=== PATIENT | male | born 1970 | race African-American/Black ===

== ENCOUNTER 2019-09-16 12:34 | Inpatient (IN) | payer OTHER ==
[2019-09-16] VITALS (10 sets, daily range): BP systolic 111–140; BP diastolic 60–86
[~2019-09-16] VITALS: Ht 190.5 cm; Wt 95.3 kg
[2019-09-16] MEDS ORDERED: Sodium Chloride 2,900 ML IVLG ONE (12:45)
[2019-09-16] MEDS ORDERED: Meropenem 1 GM in NS 55 ML IVPB ONE (13:30)
[2019-09-16] MEDS ORDERED: Acetaminophen 500mg (ES) tab ORAL ONE (13:30)
[2019-09-16] MEDS ORDERED: Omnipaque-300 100ml vial INJ ONE (13:30)
[2019-09-16] MEDS ORDERED: Vancomycin 1 GM in NS 275 ML IVPB ONE (13:30)
[2019-09-16 13:34] LABS: BASOPHILS % (AUTO) 1.3 % (0.0-2.0); HEMATOCRIT 42.3 % (42.0-52.0); HEMOGLOBIN 14.3 G/DL (14.2-18.0); LYMPHOCYTES % (AUTO) 10.2 % (20.0-45.0); MEAN CORPUSCULAR VOLUME 84 FL (80-99); MONOCYTES % (AUTO) 11.1 % (1.0-10.0); NEUTROPHILS % (AUTO) 77.4 % (45.0-75.0); PLATELET COUNT 208 K/UL (150-450); RED BLOOD COUNT 5.02 M/UL (4.70-6.10); RED CELL DISTRIBUTION WIDTH 10.9 % (11.6-14.8); WHITE BLOOD COUNT 14.1 K/UL (4.8-10.8)
[2019-09-16 14:05] LABS: ANION GAP 10 mmol/L (5-15); BLOOD UREA NITROGEN 17 mg/dL (7-18); CALCIUM 8.8 MG/DL (8.5-10.1); CARBON DIOXIDE 26 MMOL/L (21-32); CHLORIDE 98 MMOL/L (98-107); CREATININE 1.4 MG/DL (0.55-1.30); POTASSIUM 3.7 MMOL/L (3.5-5.1); SODIUM 134 MMOL/L (136-145)
[2019-09-16 14:08] LABS: ALANINE AMINOTRANSFERASE 35 U/L (12-78); ALBUMIN 3.4 G/DL (3.4-5.0); ALBUMIN/GLOBULIN RATIO 0.8 (1.0-2.7); ALKALINE PHOSPHATASE 103 U/L (46-116); ASPARTATE AMINO TRANSFERASE 21 U/L (15-37); CKMB 0.9 NG/ML (0.0-3.6); CREATINE KINASE 204 U/L (26-308)
--- NOTE | 2019-09-16 14:17 | Diagnostic Imaging Report ---
Indication: Shortness of breath Technique: XRAY Chest 1v Comparison: None Findings: Lung windows lobe. Heart appears enlarged. Perihilar fullness with pulmonary vascular congestion and streaky bibasilar airspace opacities noted. Trace pleural effusion on the left is suggested. No radiographically appreciable pneumothorax. No acute osseous abnormality appreciated. Impression: Limited exam with low lung volumes. Apparent cardiomegaly with evidence of the pulmonary vascularity suggesting congestive changes/early interstitial edema. These findings may be artifactually exaggerated by low lung volumes. Streaky opacities at the bilateral bases which may related to subsegmental atelectasis versus infiltrate.
[2019-09-16 14:19] LABS: APPEARANCE,URINE CLEAR; BILIRUBIN, URINE NEGATIVE (NEGATIVE); COLOR,URINE PALE YELLOW; GLUCOSE, URINE (UA) NEGATIVE (NEGATIVE); KETONES,URINE 1+ (NEGATIVE); LEUKOCYTE ESTERASE ,URINE NEGATIVE (NEGATIVE); NITRITE,URINE NEGATIVE (NEGATIVE); PH,URINE 6 (4.5-8.0); PROTEIN,URINE 2+ (NEGATIVE); UROBILINOGEN,URINE NORMAL MG/DL (0.0-1.0)
--- NOTE | 2019-09-16 16:08 | Emergency Room Report ---
History of Present Illness General Chief Complaint: Dyspnea/Respdistress Source: Patient Present Illness HPI This patient has a history of HIV. He is well controlled and is under the care of an infectious disease specialist. His last viral load was undetectable and CD4 count was normal. He has had recent cutaneous abscesses on his buttocks and lower back. He has been treated for this but these have worsened. He states that over the past few days he has developed chest pain and shortness of breath. He was seen at his primary care physician office and was instructed to report to the emergency department as he had a rapid heart rate and appeared to have difficulty breathing. He states he has pain and dyspnea. He states he does not feel well overall. He denies abdominal pain. He denies nausea or vomiting. He has no other complaints. Allergies: Coded Allergies: No Known Allergies (Unverified , 09/16/19) Patient History Past Medical History: HIV Social History: Reports: drug use; Denies: smoking, alcohol use Reviewed Nursing Documentation: PMH: Agreed; PSxH: Agreed Nursing Documentation-PMH Past Medical History: No History, Except For Review of Systems All Other Systems: negative except mentioned in HPI Physical Exam Vital Signs Date Time Temp Pulse Resp B/P (MAP) Pulse Ox O2 Delivery O2 Flow Rate FiO2 09/16/19 12:36 99.7 131 30 136/81 (99) 92 Room Air 09/16/19 15:51 2.0 Sp02 EP Interpretation: reviewed, normal General Appearance: alert, GCS 15, mild distress Head: normocephalic, atraumatic Eyes: bilateral eye normal inspection ENT: hearing grossly normal, normal pharynx, no angioedema, normal voice Neck: full range of motion, supple/symm/no masses Respiratory: chest non-tender, lungs clear, normal breath sounds, other - tachypnea Cardiovascular #1: no edema, tachycardia Gastrointestinal: normal bowel sounds, non tender, soft, non-distended, no guarding, no rebound Rectal: deferred Musculoskeletal: normal inspection, normal range of motion, non-tender Neurologic: alert, motor strength/tone normal, oriented x3, sensory intact, responsive, speech normal Psychiatric: judgement/insight normal, memory normal, mood/affect normal, no suicidal/homicidal ideation Skin: other - Multiple area of draining abscesses on Low back. Large draining abscess on L. buttock. Medical Decision Making Diagnostic Impression: Primary Impression: Sepsis Additional Impressions: Cellulitis MRSA cellulitis Fever Cardiomegaly Shortness of breath ER Course This patient has sepsis. Likely this is secondary to the cellulitis and wounds on his buttocks and back. He is febrile with a leukocytosis. He is also short of breath and may be developing a pneumonia or congestive heart failure. The chest x-ray was difficult to assess because the patient had not been taking a deep inhalation. Regardless, the patient was treated with broad-spectrum antibiotics to cover MRSA. He was given IV fluids. He is admitted for further evaluation and treatment. He was admitted to the ICU stepdown secondary due to sepsis and history of HIV as he could decompensate rapidly. This patient is critically ill. This patient required complex medical decision- making, aggressive intervention, extensive laboratory workup and monitoring. Critical care time: 40 minutes. Laboratory Tests Test 09/16/19 12:55 09/16/19 13:50 White Blood Count 14.1 K/UL (4.8-10.8) H Red Blood Count 5.02 M/UL (4.70-6.10) Hemoglobin 14.3 G/DL (14.2-18.0) Hematocrit 42.3 % (42.0-52.0) Mean Corpuscular Volume 84 FL (80-99) Mean Corpuscular Hemoglobin 28.5 PG (27.0-31.0) Mean Corpuscular Hemoglobin Concent 33.8 G/DL (32.0-36.0) Red Cell Distribution Width 10.9 % (11.6-14.8) L Platelet Count 208 K/UL (150-450) Mean Platelet Volume 6.1 FL (6.5-10.1) L Neutrophils (%) (Auto) 77.4 % (45.0-75.0) H Lymphocytes (%) (Auto) 10.2 % (20.0-45.0) L Monocytes (%) (Auto) 11.1 % (1.0-10.0) H Eosinophils (%) (Auto) 0.0 % (0.0-3.0) Basophils (%) (Auto) 1.3 % (0.0-2.0) Sodium Level 134 MMOL/L (136-145) L Potassium Level 3.7 MMOL/L (3.5-5.1) Chloride Level 98 MMOL/L (98-107) Carbon Dioxide Level 26 MMOL/L (21-32) Anion Gap 10 mmol/L (5-15) Blood Urea Nitrogen 17 mg/dL (7-18) Creatinine 1.4 MG/DL (0.55-1.30) H Estimate Glomerular Filtration Rate > 60 mL/min (>60) Glucose Level 135 MG/DL (74-106) H Lactic Acid Level 1.30 mmol/L (0.4-2.0) Calcium Level 8.8 MG/DL (8.5-10.1) Total Bilirubin 1.0 MG/DL (0.2-1.0) Aspartate Amino Transferase (AST) 21 U/L (15-37) Alanine Aminotransferase (ALT) 35 U/L (12-78) Alkaline Phosphatase 103 U/L (46-116) Total Creatine Kinase 204 U/L (26-308) Creatine Kinase MB 0.9 NG/ML (0.0-3.6) Creatine Kinase MB Relative Index 0.4 Troponin I 0.000 ng/mL (0.000-0.056) Total Protein 7.7 G/DL (6.4-8.2) Albumin 3.4 G/DL (3.4-5.0) Globulin 4.3 g/dL Albumin/Globulin Ratio 0.8 (1.0-2.7) L Urine Color Pale yellow Urine Appearance Clear Urine pH 6 (4.5-8.0) Urine Specific [place] 1.010 (1.005-1.035) Urine Protein 2+ (NEGATIVE) H Urine Glucose (UA) Negative (NEGATIVE) Urine Ketones 1+ (NEGATIVE) H Urine Blood 1+ (NEGATIVE) H Urine Nitrite Negative (NEGATIVE) Urine Bilirubin Negative (NEGATIVE) Urine Urobilinogen Normal MG/DL (0.0-1.0) Urine Leukocyte Esterase Negative (NEGATIVE) Urine RBC 0-2 /HPF (0 - 0) H Urine WBC 0-2 /HPF (0 - 0) Urine Squamous Epithelial Cells Occasional /LPF Urine Bacteria None /HPF (NONE) EKG Diagnostic Results Rate: tachycardiac Rhythm: other - S.tachycardia ST Segments: no acute changes Rhythm Strip Diag. Results EP Interpretation: yes Rate: 130's Rhythm: no PVC's, no ectopy, other - S.tachycardia Chest X-Ray Diagnostic Results Chest X-Ray Diagnostic Results : Chest X-Ray Ordered: Yes # of Views/Limited/Complete: 1 View Indication: Shortness of Breath EP Interpretation: Yes Interpretation: other - Cardiomegaly, pulmonary congestion bilaterally Impression: Other - See Above Electronically Signed by: Tami Her DO CT/MRI/US Diagnostic Results CT/MRI/US Diagnostic Results : Imaging Test Ordered: CT abd/pelvis Impression IMPRESSION: * Focal skin thickening with subcutaneous inflammatory stranding involving the skin of the left lower back/left upper gluteal region concerning for cellulitis. No underlying subcutaneous fluid collection or abscess. No appreciable ulcer in this region however correlation with physical exam findings is recommended. * Equivocal thickening of the wall the bladder. Correlate with urinalysis to exclude cystitis. * Trace right pleural effusion and bibasilar airspace opacities which may related to compressive atelectasis. Developing infectious infiltrate can also be considered. * Splenomegaly with the spleen measuring 13 cm in length. * Mild to moderate colonic stool burden suggesting constipation. * No evidence of bowel obstruction or definite inflammatory stranding within the is anterior. Appendix is normal. Additional findings as above. Last Vital Signs Date Time Temp Pulse Resp B/P (MAP) Pulse Ox O2 Delivery O2 Flow Rate FiO2 09/16/19 15:51 98.5 120 23 140/86 97 2.0 09/16/19 13:00 Room Air Disposition: ADMITTED INPATIENT Condition: Critical Referrals: NON PHYSICIAN (PCP) Tami Her DO Sep 16, 2019 16:08
[2019-09-16] MEDS ORDERED: JULUCA 50-25 M1 EACH PO (16:14)
--- NOTE | 2019-09-16 17:52 | History and Physical ---
History of Present Illness General Date patient seen: Sep 16, 2019 Time patient seen: 17:00 Reason for Hospitalization: Dyspnea/Respdistress Present Illness HPI 49-year-old male patient of Dr. Payne with HIV on BAKER sent to the ER by him for worsening buttock pain for one week worse with sitting down. Per patient years ago has had skin infections that required incision and drainage but not since he has been compliant with his retroviral therapy. He denies any recent travel, sick contacts, change in medications, new soap. Reports good hygiene. Denies IV drug use, however most recently about a week ago was sniffing crystal meth. Denies chest pain or palpitations. Has sob. No abdominal pain, n,v, or diarrhea. He is sexually active, with men only- one partner currently. In the ER he was found to be extremely tachypneic to 34, febrile to 102.9, tachycardic 110. There was an abnormal wound to the left buttock, concerning for necrotizing infection. He had a wbc of 14.1, left shift 77.4%, creatinine 1.4 ( unknown baseline) Past Medical/Surgical History: HIV on BAKER Family history: Denies any health issues Social history: denies etoh, or tobacco, sniffs crystal meth, sexually active with men Allergies: Coded Allergies: No Known Allergies (Unverified , 09/16/19) Medication History Scheduled Dolutegravir/Rilpivirine (Juluca 50-25 Mg Tablet), 1 EACH PO DAILY, (Reported) Patient History Healthcare decision maker Resuscitation status Full Code Advanced Directive on File Physical Exam Physical Exam Narrative General appearance: alert, cooperative, respiratory distress Head: Normocephalic, without obvious abnormality, atraumatic Eyes: PERRL, EOM's intact Throat: no thrush Neck: supple, no JVD Lungs: clear to auscultation bilaterally Heart: Tachycardia, S1, S2 normal, no murmur, click, rub or gallop Abdomen: soft, non-tender. Bowel sounds normal. No masses, no organomegaly Extremities: extremities normal, atraumatic, no cyanosis or edema Pulses: 2+ and symmetric Neurologic: Grossly normal Skin: Presented on admission with large open furuncle L buttocks(L)3.2cm x (W) 4cm. Base of wound has 100% slough with surrounding erythematous and indurated borders(L)3.5cm x (W)6.8cm. Moderate amt of purulent exudate noted.Mild elevation in skin temp periwound. Last 24 Hour Vital Signs Date Time Temp Pulse Resp B/P (MAP) Pulse Ox O2 Delivery O2 Flow Rate FiO2 09/16/19 17:00 108 24 118/70 (86) 95 09/16/19 16:54 Room Air 09/16/19 16:45 108 09/16/19 16:45 98.9 102 26 111/64 (80) 97 09/16/19 15:51 98.5 120 23 140/86 97 2.0 09/16/19 13:00 102.9 122 30 138/78 94 Room Air 09/16/19 12:45 123 29 Room Air 09/16/19 12:36 99.7 131 30 136/81 (99) 92 Room Air Laboratory Tests Test 09/16/19 12:55 09/16/19 13:50 White Blood Count 14.1 K/UL (4.8-10.8) H Red Blood Count 5.02 M/UL (4.70-6.10) Hemoglobin 14.3 G/DL (14.2-18.0) Hematocrit 42.3 % (42.0-52.0) Mean Corpuscular Volume 84 FL (80-99) Mean Corpuscular Hemoglobin 28.5 PG (27.0-31.0) Mean Corpuscular Hemoglobin Concent 33.8 G/DL (32.0-36.0) Red Cell Distribution Width 10.9 % (11.6-14.8) L Platelet Count 208 K/UL (150-450) Mean Platelet Volume 6.1 FL (6.5-10.1) L Neutrophils (%) (Auto) 77.4 % (45.0-75.0) H Lymphocytes (%) (Auto) 10.2 % (20.0-45.0) L Monocytes (%) (Auto) 11.1 % (1.0-10.0) H Eosinophils (%) (Auto) 0.0 % (0.0-3.0) Basophils (%) (Auto) 1.3 % (0.0-2.0) Sodium Level 134 MMOL/L (136-145) L Potassium Level 3.7 MMOL/L (3.5-5.1) Chloride Level 98 MMOL/L (98-107) Carbon Dioxide Level 26 MMOL/L (21-32) Anion Gap 10 mmol/L (5-15) Blood Urea Nitrogen 17 mg/dL (7-18) Creatinine 1.4 MG/DL (0.55-1.30) H Estimat Glomerular Filtration Rate > 60 mL/min (>60) Glucose Level 135 MG/DL (74-106) H Lactic Acid Level 1.30 mmol/L (0.4-2.0) Calcium Level 8.8 MG/DL (8.5-10.1) Total Bilirubin 1.0 MG/DL (0.2-1.0) Aspartate Amino Transf (AST/SGOT) 21 U/L (15-37) Alanine Aminotransferase (ALT/SGPT) 35 U/L (12-78) Alkaline Phosphatase 103 U/L (46-116) Total Creatine Kinase 204 U/L (26-308) Creatine Kinase MB 0.9 NG/ML (0.0-3.6) Creatine Kinase MB Relative Index 0.4 Troponin I 0.000 ng/mL (0.000-0.056) Total Protein 7.7 G/DL (6.4-8.2) Albumin 3.4 G/DL (3.4-5.0) Globulin 4.3 g/dL Albumin/Globulin Ratio 0.8 (1.0-2.7) L Urine Color Pale yellow Urine Appearance Clear Urine pH 6 (4.5-8.0) Urine Specific [place] 1.010 (1.005-1.035) Urine Protein 2+ (NEGATIVE) H Urine Glucose (UA) Negative (NEGATIVE) Urine Ketones 1+ (NEGATIVE) H Urine Blood 1+ (NEGATIVE) H Urine Nitrite Negative (NEGATIVE) Urine Bilirubin Negative (NEGATIVE) Urine Urobilinogen Normal MG/DL (0.0-1.0) Urine Leukocyte Esterase Negative (NEGATIVE) Urine RBC 0-2 /HPF (0 - 0) H Urine WBC 0-2 /HPF (0 - 0) Urine Squamous Epithelial Cells Occasional /LPF Urine Bacteria None /HPF (NONE) cxr: early edema vs. low lung volumes Microbiology Date/Time Source Procedure Growth Status 09/16/19 15:59 Nasal Nares - Final Complete 09/16/19 15:59 Nasal Nares - Final Complete Height (Feet): 6 Height (Inches): 3.00 Weight (Pounds): 220 Assessment/Plan Problem List: (1) Severe sepsis ICD Codes: A41.9 - Sepsis, unspecified organism; R65.20 - Severe sepsis without septic shock SNOMED: 90257372 (2) Cellulitis of buttock, left ICD Codes: L03.317 - Cellulitis of buttock SNOMED: 21067073 (3) Acute respiratory failure ICD Codes: J96.00 - Acute respiratory failure, unspecified whether with hypoxia or hypercapnia SNOMED: 84723372 (4) RAZIA (acute kidney injury) ICD Codes: N17.9 - Acute kidney failure, unspecified SNOMED: 3769603, 76018595 (5) HIV (human immunodeficiency virus infection) ICD Codes: B20 - Human immunodeficiency virus [HIV] disease SNOMED: 28697593 Status: other - critical Assessment/Plan: #Severe sepsis secondary to skin abscess in the left buttock area Admit to ICU IVF cefepime and Vancomycin ID consult Dr. Silva Surgery consult Dr. Coronado for I&D wound care consult check cultures, blood and wound #Acute respiratory failure #?edema on cxr #Cardiomegaly -close monitoring in ICU -2D echo -Pro-BNP #RAZIA, or RAZIA on CKD -trend renal function -Avoid nephrotoxic medications -if not better, nephrology consult #HIV- on ARV- compliant continue home hiv meds #Illicit drug use- sniffing crystal meth most recently last week. 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 d/w Dr. Raheem Payne (primary) and Dr. Silva time of this note may not reflect time of encounter. Enrike Cuellar M.D. Sep 16, 2019 17:52
[2019-09-16] MEDS ORDERED: Milk of Magnesia 30ml Ud ORAL PRN (18:00)
[2019-09-16] MEDS ORDERED: Zolpidem 5mg tab ORAL PRN (18:00)
[2019-09-16] MEDS ORDERED: Albuterol/Ipratropium 3ml neb HHN PRN (18:00)
[2019-09-16] MEDS ORDERED: LORazepam 1mg tab ORAL PRN (18:00)
[2019-09-16] MEDS ORDERED: HYDROmorphone 1mg/ml Carpuject IVP PRN (18:00)
--- NOTE | 2019-09-16 19:59 | Consultation ---
History of Present Illness General Date patient seen: Sep 16, 2019 Reason for Hospitalization: Dyspnea/Respdistress Present Illness HPI This is a very pleasant 49-year-old male who is a patient of Dr. Naqvi that presented to the emergency department at [facility] complaining of worsening buttock pain. In ED patient was identified to have a leukocytosis, abnormal labs, abnormal appearing wound in the left buttock. Concerns for necrotizing soft tissue infection given appearance of wound. Patient was admitted for further care and management. Surgery was called to evaluate and assist with care and management. Patient seen, patient evaluated, chart reviewed. Patient states that approximately a week ago he began identified some discomfort in the left buttock area with sitting down and walking. It is progressively worse since and now decided to come in and have evaluation. States that he is otherwise been well and healthy. States that many years ago had a abdominal subcutaneous tissue infection requiring incision and drainage but did not feel as painful as this. Denies noting any drainage. States good hygiene otherwise. No recent travel. No recent changes in diet. No recent changes in skin creams lotions shampoos or soaps. Allergies: Coded Allergies: No Known Allergies (Unverified , 09/16/19) Medication History Scheduled Dolutegravir/Rilpivirine (Juluca 50-25 Mg Tablet), 1 EACH PO DAILY, (Reported) Patient History History Provided By: Patient, Medical Record, PMD Healthcare decision maker Resuscitation status Full Code Advanced Directive on File Past Medical/Surgical History Past Medical/Surgical History: (1) Sepsis (2) Cardiomegaly (3) Fever (4) Shortness of breath (5) Cellulitis (6) MRSA cellulitis Review of Systems Review of Symptoms General ROS: no weight loss or fever Psychological ROS: no depression or mood changes, no memory loss Ophthalmic ROS: no visual changes or eye irritation ENT ROS: no nasal congestion, hearing loss, dizziness Allergy and Immunology ROS: no allergic symptoms or urticaria Hematological and Lymphatic ROS: no swollen glands, unusual bleeding or bruising Endocrine ROS: no polyuria, polydipsia, weight changes, temperature intolerance Respiratory ROS: no cough, shortness of breath, or wheezing Cardiovascular ROS: no chest pain or dyspnea on exertion Gastrointestinal ROS: denies abdominal pain, bright red blood in stool. Musculoskeletal ROS: no myalgias or arthralgias Neurological ROS: no TIA or stroke symptoms Dermatological ROS: no new or changing skin lesions, rashes or pruritis Physical Exam Physical Exam General appearance: alert, cooperative, no distress, appears stated age Head: Normocephalic, without obvious abnormality, atraumatic Eyes: conjunctivae/corneas clear. PERRL, EOM's intact. Fundi benign Throat: Lips, mucosa, and tongue normal. Teeth and gums normal Neck: supple, symmetrical, trachea midline, no adenopathy, thyroid: not enlarged, symmetric, no tenderness/mass/nodules, no carotid bruit and no JVD Lungs: clear to auscultation bilaterally Heart: regular rate and rhythm, S1, S2 normal, no murmur, click, rub or gallop Abdomen: soft, non-tender. Bowel sounds normal. No masses, no organomegaly Extremities: extremities normal, atraumatic, no cyanosis or edema Pulses: 2+ and symmetric Skin: Skin color, texture, turgor normal. Pt presented on admission with large open furuncle L buttocks(L)3.2cm x (W)4cm. Base of wound has 100% slough with surrounding erythematous and indurated borders(L)3.5cm x (W)6.8cm. Moderate amt of purulent exudate noted.Mild elevation in skin temp periwound. Neurologic: Grossly normal Last 24 Hour Vital Signs Date Time Temp Pulse Resp B/P (MAP) Pulse Ox O2 Delivery O2 Flow Rate FiO2 09/16/19 18:00 101 26 113/68 (83) 96 09/16/19 17:15 Room Air 09/16/19 17:00 108 24 118/70 (86) 95 09/16/19 16:54 Room Air 09/16/19 16:45 108 09/16/19 16:45 98.9 102 26 111/64 (80) 97 09/16/19 15:51 98.5 120 23 140/86 97 2.0 09/16/19 13:00 102.9 122 30 138/78 94 Room Air 09/16/19 12:45 123 29 Room Air 09/16/19 12:36 99.7 131 30 136/81 (99) 92 Room Air Laboratory Tests Test 09/16/19 12:55 09/16/19 13:50 White Blood Count 14.1 K/UL (4.8-10.8) H Red Blood Count 5.02 M/UL (4.70-6.10) Hemoglobin 14.3 G/DL (14.2-18.0) Hematocrit 42.3 % (42.0-52.0) Mean Corpuscular Volume 84 FL (80-99) Mean Corpuscular Hemoglobin 28.5 PG (27.0-31.0) Mean Corpuscular Hemoglobin Concent 33.8 G/DL (32.0-36.0) Red Cell Distribution Width 10.9 % (11.6-14.8) L Platelet Count 208 K/UL (150-450) Mean Platelet Volume 6.1 FL (6.5-10.1) L Neutrophils (%) (Auto) 77.4 % (45.0-75.0) H Lymphocytes (%) (Auto) 10.2 % (20.0-45.0) L Monocytes (%) (Auto) 11.1 % (1.0-10.0) H Eosinophils (%) (Auto) 0.0 % (0.0-3.0) Basophils (%) (Auto) 1.3 % (0.0-2.0) Sodium Level 134 MMOL/L (136-145) L Potassium Level 3.7 MMOL/L (3.5-5.1) Chloride Level 98 MMOL/L (98-107) Carbon Dioxide Level 26 MMOL/L (21-32) Anion Gap 10 mmol/L (5-15) Blood Urea Nitrogen 17 mg/dL (7-18) Creatinine 1.4 MG/DL (0.55-1.30) H Estimat Glomerular Filtration Rate > 60 mL/min (>60) Glucose Level 135 MG/DL (74-106) H Lactic Acid Level 1.30 mmol/L (0.4-2.0) Calcium Level 8.8 MG/DL (8.5-10.1) Total Bilirubin 1.0 MG/DL (0.2-1.0) Aspartate Amino Transf (AST/SGOT) 21 U/L (15-37) Alanine Aminotransferase (ALT/SGPT) 35 U/L (12-78) Alkaline Phosphatase 103 U/L (46-116) Total Creatine Kinase 204 U/L (26-308) Creatine Kinase MB 0.9 NG/ML (0.0-3.6) Creatine Kinase MB Relative Index 0.4 Troponin I 0.000 ng/mL (0.000-0.056) Total Protein 7.7 G/DL (6.4-8.2) Albumin 3.4 G/DL (3.4-5.0) Globulin 4.3 g/dL Albumin/Globulin Ratio 0.8 (1.0-2.7) L Urine Color Pale yellow Urine Appearance Clear Urine pH 6 (4.5-8.0) Urine Specific [place] 1.010 (1.005-1.035) Urine Protein 2+ (NEGATIVE) H Urine Glucose (UA) Negative (NEGATIVE) Urine Ketones 1+ (NEGATIVE) H Urine Blood 1+ (NEGATIVE) H Urine Nitrite Negative (NEGATIVE) Urine Bilirubin Negative (NEGATIVE) Urine Urobilinogen Normal MG/DL (0.0-1.0) Urine Leukocyte Esterase Negative (NEGATIVE) Urine RBC 0-2 /HPF (0 - 0) H Urine WBC 0-2 /HPF (0 - 0) Urine Squamous Epithelial Cells Occasional /LPF Urine Bacteria None /HPF (NONE) Microbiology Date/Time Source Procedure Growth Status 09/16/19 15:59 Nasal Nares - Final Complete 09/16/19 15:59 Nasal Nares - Final Complete Height (Feet): 6 Height (Inches): 3.00 Weight (Pounds): 220 Medications Current Medications Medications (Trade) Dose Ordered Sig/Gabino Route PRN Reason Start Time Stop Time Status Last Admin Dose Admin Acetaminophen (Tylenol) 650 mg Q4H PRN ORAL Mild Pain (Pain Scale 1-3) 09/16/19 18:00 10/16/19 17:59 Acetaminophen (Tylenol) 650 mg Q4H PRN ORAL fever 09/16/19 18:00 10/16/19 17:59 Albuterol/ Ipratropium (Albuterol/ Ipratropium) 3 ml Q4H PRN HHN Shortness of Breath 09/16/19 18:00 09/21/19 17:59 Cefepime HCl 2 gm/ Dextrose 55 ml @ 110 mls/hr EVERY 12 HOURS IVPB 09/16/19 21:00 09/23/19 20:59 Dextrose (Dextrose 50%) 25 ml Q30M PRN IV Hypoglycemia 09/16/19 18:00 10/16/19 17:59 Dextrose (Dextrose 50%) 50 ml Q30M PRN IV Hypoglycemia 09/16/19 18:00 10/16/19 17:59 Diphenhydramine HCl (Benadryl) 25 mg Q6H PRN ORAL Itching/Pruritis 09/16/19 18:00 10/16/19 17:59 Heparin Sodium (Porcine) (Heparin 5000 units/ml) 5,000 units EVERY 12 HOURS SUBQ 09/16/19 21:00 10/16/19 20:59 Hydromorphone HCl (Dilaudid) 1 mg Q6H PRN IVP Moderate Pain (Pain Scale 4-6) 09/16/19 18:00 09/23/19 17:59 Hydromorphone HCl (Dilaudid) 2 mg Q6H PRN IVP Severe Pain (Pain Scale 7-10) 09/16/19 18:00 09/23/19 17:59 Lorazepam (Ativan) 1 mg Q4H PRN ORAL For Anxiety 09/16/19 18:00 09/23/19 17:59 Magnesium Hydroxide (Mom) 30 ml HSPRN PRN ORAL Constipation 09/16/19 18:00 10/16/19 17:59 Ondansetron HCl (Zofran) 4 mg Q6H PRN IVP Nausea & Vomiting 09/16/19 18:00 10/16/19 17:59 Sodium Chloride 1,000 ml @ 100 mls/hr Q10H IVLG 09/16/19 18:47 10/16/19 18:46 09/16/19 18:41 Vancomycin HCl (Vanco rx to dose) 1 ea DAILY PRN MISC Per rx protocol 09/16/19 18:00 10/16/19 17:59 Vancomycin HCl 750 mg/Dextrose 275 ml @ 183.333 mls/hr Q12HR@0200,1400 IVPB 09/17/19 02:00 09/22/19 01:59 Zolpidem Tartrate (Ambien) 5 mg HSPRN PRN ORAL Insomnia 09/16/19 18:00 09/23/19 17:59 Assessment/Plan Problem List: (1) Cellulitis of buttock, left Assessment & Plan: This is a 49-year-old male otherwise well presented with 1 week of left buttock pain progressively worsening. In ED identified to have leukocytosis, abnormal labs, large left buttock wound concerning for potential excising soft tissue infection it is open and draining with significant induration and tenderness and erythema. Pt presented on admission with large open furuncle L buttocks(L)3.2cm x (W)4cm. Base of wound has 100% slough with surrounding erythematous and indurated borders(L)3.5cm x (W)6.8cm. Moderate amt of purulent exudate noted.Mild elevation in skin temp periwound. Wound is by the bedside and cultures were taken of the drainage. There is no area of significant fluctuance or underlying abscess that could be identified. It is a large open furuncle on the left buttocks with a significant induration cellulitis with potential duration of week or even longer. Furthermore on evaluation patient has multiple small areas of less than 1 cm carbuncles noted scattered throughout his lower back. With patient's permission at the bedside some of the purulent dermal exudate was evacuated for the culture. The wound was cleansed. The opening was palpated and examined with minimal tunneling tracking and no deep pockets. We will need to monitor closely for improvement or progression Recommend IV antibiotics as per infectious disease Local wound care with washing wound daily, skin protectant, OPTi foam dressing Check hemoglobin A1c Trend labs Okay for diet Okay for activity as tolerated Thank you for let me participate in patient's care will follow with recommendations ICD Codes: L03.317 - Cellulitis of buttock SNOMED: 82665826 (2) Cellulitis ICD Codes: L03.90 - Cellulitis, unspecified SNOMED: 765710866 Stone Coronado Sep 16, 2019 19:58
[2019-09-16] MEDS: Heparin 5000 units/ml inj SUBQ SCH (20:22)
[2019-09-16] MEDS: Cefepime HCl 2 GM in D5W 55 ML IVPB SCH (20:23)
[2019-09-17] VITALS (7 sets, daily range): BP systolic 111–140; BP diastolic 70–85
[2019-09-17] MEDS: Vancomycin 750mg/D5W 275ml IVPB SCH ×4 (02:26→13:17)
[2019-09-17 07:23] LABS: BASOPHILS % (AUTO) 0.9 % (0.0-2.0); EOSINOPHILS % (AUTO) 0.9 % (0.0-3.0); HEMATOCRIT 35.1 % (42.0-52.0); HEMOGLOBIN 12.3 G/DL (14.2-18.0); LYMPHOCYTES % (AUTO) 15.3 % (20.0-45.0); MEAN CORPUSCULAR VOLUME 83 FL (80-99); MONOCYTES % (AUTO) 12.4 % (1.0-10.0); NEUTROPHILS % (AUTO) 70.5 % (45.0-75.0); PLATELET COUNT 185 K/UL (150-450); RED BLOOD COUNT 4.21 M/UL (4.70-6.10); RED CELL DISTRIBUTION WIDTH 10.9 % (11.6-14.8)
[2019-09-17 07:53] LABS: ALANINE AMINOTRANSFERASE 32 U/L (12-78); ALBUMIN 2.6 G/DL (3.4-5.0); ALBUMIN/GLOBULIN RATIO 0.7 (1.0-2.7); ALKALINE PHOSPHATASE 82 U/L (46-116); ANION GAP 7 mmol/L (5-15); ASPARTATE AMINO TRANSFERASE 19 U/L (15-37); BILIRUBIN,TOTAL 0.7 MG/DL (0.2-1.0); BLOOD UREA NITROGEN 10 mg/dL (7-18); CALCIUM 8.1 MG/DL (8.5-10.1); CARBON DIOXIDE 25 MMOL/L (21-32); CHLORIDE 108 MMOL/L (98-107); CREATININE 1.1 MG/DL (0.55-1.30); POTASSIUM 3.9 MMOL/L (3.5-5.1); SODIUM 140 MMOL/L (136-145)
[2019-09-17] MEDS: Cefepime HCl 2 GM in D5W 55 ML IVPB SCH ×2 (08:17→21:00)
[2019-09-17] MEDS: Heparin 5000 units/ml inj SUBQ SCH ×2 (08:22→21:00)
--- NOTE | 2019-09-17 08:50 | Diagnostic Imaging Report ---
Indication: Abdominal pain Technique: CT of the abdomen and pelvis utilizing automated exposure control with intravenous contrast. Venous scanning performed. Axial, sagittal and coronal reformats presented. CT dose: Total DLP 1566 mGycm; CTDI vol 24.5 mGy Comparison: None Findings: Dependent atelectasis noted in the lung bases. There is a trace right pleural effusion. Heart appears enlarged. There is elevation of the right hemidiaphragm. Hepatic contour is smooth. Small subcentimeter low-attenuation lesions in the right hepatic lobe too small for definitive characterization but most likely representing cysts. Hepatic veins and portal veins appear patent. There are no CT evident gallstones or pericholecystic inflammatory changes. No biliary ductal dilatation. Spleen is enlarged measuring 13 cm in length. No focal splenic lesion identified. Adrenal glands and pancreas unremarkable. No peripancreatic inflammatory changes or fluid collections. Kidneys enhance symmetrically. There is no urinary tract stone, hydronephrosis or perinephric stranding. There is equivocal mild bladder wall thickening. Prostate is borderline prominent. Seminal vesicles and imaged portions of the penis unremarkable. There is no free intraperitoneal fluid or air. Appendix is normal in caliber. There is no evidence of small bowel obstruction. There is a small hiatal hernia. Mild to moderate colonic stool burden is noted suggesting constipation. The abdominal aorta is normal in caliber. Small mesenteric lymph nodes are noted, none of which are pathologically enlarged by imaging size criteria. There are degenerative changes in the spine. No acute osseous abnormality is identified. There is skin thickening with subcutaneous stranding involving the skin of the left lower back/upper gluteal region concerning for cellulitis. No underlying subcutaneous organized/drainable fluid collection suggest abscess. No definite associated ulceration however correlation with physical exam recommended. No evidence of intra-abdominal abscess. IMPRESSION: * Focal skin thickening with subcutaneous inflammatory stranding involving the skin of the left lower back/left upper gluteal region concerning for cellulitis. No underlying subcutaneous fluid collection or abscess. No appreciable ulcer in this region however correlation with physical exam findings is recommended. * Equivocal thickening of the wall the bladder. Correlate with urinalysis to exclude cystitis. * Trace right pleural effusion and bibasilar airspace opacities which may related to compressive atelectasis. Developing infectious infiltrate can also be considered. * Splenomegaly with the spleen measuring 13 cm in length. * Mild to moderate colonic stool burden suggesting constipation. * No evidence of bowel obstruction or definite inflammatory stranding within the is anterior. Appendix is normal. Additional findings as above. The CT scanner at [facility] is accredited by the [employer] and the scans are performed using protocols designed to limit radiation exposure to as low as reasonably achievable to attain images of sufficient resolution adequate for diagnostic evaluation.
[2019-09-17] MEDS ORDERED: Dolutegravir Sodium 50mg tab ORAL SCH (09:00)
--- NOTE | 2019-09-17 13:05 | General Progress Note ---
Assessment/Plan Problem List: (1) Severe sepsis ICD Codes: A41.9 - Sepsis, unspecified organism; R65.20 - Severe sepsis without septic shock SNOMED: 45657173 (2) Cellulitis of buttock, left ICD Codes: L03.317 - Cellulitis of buttock SNOMED: 34971271 (3) Acute respiratory failure ICD Codes: J96.00 - Acute respiratory failure, unspecified whether with hypoxia or hypercapnia SNOMED: 99207804 (4) RAZIA (acute kidney injury) ICD Codes: N17.9 - Acute kidney failure, unspecified SNOMED: 9224184, 23845096 (5) HIV (human immunodeficiency virus infection) ICD Codes: B20 - Human immunodeficiency virus [HIV] disease SNOMED: 76662728 Status: other - critical Assessment/Plan: #Severe sepsis secondary to skin abscess in the left buttock area-improving Admitted to ICU--> step down IVF, will dc given elevated bnp cefepime and Vancomycin ID consult Dr. Silva Surgery consult Dr. Coronado for I&D wound care consult check cultures, blood and wound #Acute respiratory failure, elevated bnp. 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 counselled regarding usage I spent 40 minutes on this patient's case, greater than 50% spent on counselling and care coordination d/w Dr. Raheem Payne (primary) and Dr. Silva time of this note may not reflect time of encounter. Subjective Date patient seen: Sep 17, 2019 ROS Limited/Unobtainable: No Constitutional: Reports: other - buttock pain 02/12 HEENT: Denies: no symptoms, eye pain, blurred vision, tearing, double vision, ear pain, ear discharge, nose pain, nose congestion, throat pain, throat swelling, mouth pain, mouth swelling, other Cardiovascular: Denies: no symptoms, chest pain, edema, irregular heart rate, lightheadedness, palpitations, syncope, other Respiratory: Reports: shortness of breath, other - rapid shallow breathing Gastrointestinal/Abdominal: Denies: no symptoms, abdomen distended, abdominal pain, black stools, tarry stools, blood in stool, constipated, diarrhea, difficulty swallowing, nausea, poor appetite, poor fluid intake, rectal bleeding , vomiting, other Genitourinary: Denies: no symptoms, burning, discharge, frequency, flank pain, hematuria, incontinence, pain, urgency, other Neurologic/Psychiatric: Denies: no symptoms, anxiety, depressed, emotional problems, headache, numbness, paresthesia, pre-existing deficit, seizure, tingling, tremors, weakness, other Endocrine: Denies: no symptoms, excessive sweating, flushing, intolerance to cold, intolerance to heat, increased hunger, increased thirst, increased urine, unexplained weight gain, unexplained weight loss, other Hematologic/Lymphatic: Denies: no symptoms, anemia, easy bleeding, easy bruising, other Allergies: Coded Allergies: No Known Allergies (Unverified , 09/16/19) Subjective following up for severe sepsis secondary to buttock abscess. Remains tachycardic , and tachypneic, tmax 102.9, bp stable . about to get 2D echo done, concerned about his heart. He feels his breathing is not normal, rapid and shallow. Objective Last 24 Hour Vital Signs Date Time Temp Pulse Resp B/P (MAP) Pulse Ox O2 Delivery O2 Flow Rate FiO2 09/17/19 12:00 98.8 117 20 137/81 (99) 96 09/17/19 12:00 Room Air 09/17/19 10:12 98.8 09/17/19 08:04 106 09/17/19 08:00 100.4 107 21 125/70 (88) 95 09/17/19 08:00 Room Air 09/17/19 04:00 98.6 97 20 119/72 (88) 94 09/17/19 04:00 Room Air 09/17/19 03:42 98 09/17/19 00:59 100.1 09/17/19 00:00 Room Air 09/17/19 00:00 100.9 108 28 111/70 (84) 98 09/16/19 23:00 108 35 112/66 (81) 96 09/16/19 22:00 114 36 128/67 (87) 95 09/16/19 21:00 102 35 119/72 (88) 98 09/16/19 20:00 Room Air 09/16/19 20:00 99.4 110 34 119/72 (88) 99 09/16/19 19:00 35 112/60 (77) 96 09/16/19 18:00 101 26 113/68 (83) 96 09/16/19 17:15 Room Air 09/16/19 17:00 108 24 118/70 (86) 95 09/16/19 16:54 Room Air 09/16/19 16:45 108 09/16/19 16:45 98.9 102 26 111/64 (80) 97 09/16/19 16:15 98.5 98 19 136/82 98 Room Air 09/16/19 15:51 98.5 120 23 140/86 97 2.0 09/16/19 13:00 102.9 122 30 138/78 94 Room Air Intake and Output 09/16/19 09/17/19 19:00 07:00 Intake Total 300 ml 1880.000 ml Output Total 1850 ml 1100 ml Balance -1550 ml 780.000 ml Intake Oral 200 ml 480 ml IV Total 100 ml 1400.000 ml Output Urine Total 1850 ml 1100 ml # Voids 1 1 Laboratory Tests 09/16/19 12:55: White Blood Count 14.1H, Red Blood Count 5.02, Hemoglobin 14.3, Hematocrit 42.3 , Mean Corpuscular Volume 84, Mean Corpuscular Hemoglobin 28.5, Mean Corpuscular Hemoglobin Concent 33.8, Red Cell Distribution Width 10.9L, Platelet Count 208, Mean Platelet Volume 6.1L, Neutrophils (%) (Auto) 77.4H, Lymphocytes (%) (Auto) 10.2L, Monocytes (%) (Auto) 11.1H, Eosinophils (%) (Auto ) 0.0, Basophils (%) (Auto) 1.3, Sodium Level 134L, Potassium Level 3.7, Chloride Level 98, Carbon Dioxide Level 26, Anion Gap 10, Blood Urea Nitrogen 17 , Creatinine 1.4H, Estimat Glomerular Filtration Rate > 60, Glucose Level 135H, Lactic Acid Level 1.30, Calcium Level 8.8, Total Bilirubin 1.0, Aspartate Amino Transf (AST/SGOT) 21, Alanine Aminotransferase (ALT/SGPT) 35, Alkaline Phosphatase 103, Total Creatine Kinase 204, Creatine Kinase MB 0.9, Creatine Kinase MB Relative Index 0.4, Troponin I 0.000, Total Protein 7.7, Albumin 3.4, Globulin 4.3, Albumin/Globulin Ratio 0.8L 09/16/19 13:50: Urine Color Pale yellow, Urine Appearance Clear, Urine pH 6, Urine Specific [place] 1.010, Urine Protein 2+H, Urine Glucose (UA) Negative, Urine Ketones 1+H , Urine Blood 1+H, Urine Nitrite Negative, Urine Bilirubin Negative, Urine Urobilinogen Normal, Urine Leukocyte Esterase Negative, Urine RBC 0-2H, Urine WBC 0-2, Urine Squamous Epithelial Cells Occasional, Urine Bacteria None 09/16/19 18:50: Urine Opiates Screen Negative, Urine Barbiturates Screen Negative, Phencyclidine (PCP) Screen Negative, Urine Amphetamines Screen Negative, Urine Benzodiazepines Screen Negative, Urine Cocaine Screen Negative, Urine Marijuana (THC) Screen Negative 09/17/19 05:53: White Blood Count 11.0H, Red Blood Count 4.21L, Hemoglobin 12.3L, Hematocrit 35.1L, Mean Corpuscular Volume 83, Mean Corpuscular Hemoglobin 29.3, Mean Corpuscular Hemoglobin Concent 35.1, Red Cell Distribution Width 10.9L, Platelet Count 185, Mean Platelet Volume 6.2L, Neutrophils (%) (Auto) 70.5, Lymphocytes (%) (Auto) 15.3L, Monocytes (%) (Auto) 12.4H, Eosinophils (%) (Auto ) 0.9, Basophils (%) (Auto) 0.9, Sodium Level 140, Potassium Level 3.9, Chloride Level 108H, Carbon Dioxide Level 25, Anion Gap 7, Blood Urea Nitrogen 10, Creatinine 1.1, Estimat Glomerular Filtration Rate > 60, Glucose Level 103, Calcium Level 8.1L, Total Bilirubin 0.7, Aspartate Amino Transf (AST/SGOT) 19, Alanine Aminotransferase (ALT/SGPT) 32, Alkaline Phosphatase 82, Total Protein 6.4, Albumin 2.6L, Globulin 3.8, Albumin/Globulin Ratio 0.7L, Erythrocyte Sedimentation Rate 36H, Hemoglobin A1c 5.8, C-Reactive Protein, Quantitative 29.5H, Pro-B-Type Natriuretic Peptide 1031H Height (Feet): 6 Height (Inches): 3.00 Weight (Pounds): 212 Objective General appearance: alert, cooperative, mild respiratory distress Head: Normocephalic, without obvious abnormality, atraumatic Eyes: PERRL, EOM's intact Throat: no thrush Neck: supple, no JVD Lungs: clear to auscultation bilaterally Heart: Tachycardia, S1, S2 normal, no murmur, click, rub or gallop Abdomen: soft, non-tender. Bowel sounds normal. No masses, no organomegaly Extremities: extremities normal, atraumatic, no cyanosis or edema Pulses: 2+ and symmetric Neurologic: Grossly normal Skin: Presented on admission with large open furuncle L buttocks(L)3.2cm x (W) 4cm. Base of wound has 100% slough with surrounding erythematous and indurated borders(L)3.5cm x (W)6.8cm. Moderate amt of purulent exudate, now s/p I&D, covered with dressing. Enrike Cuellar M.D. Sep 17, 2019 13:05
[2019-09-17] MEDS ORDERED: Albuterol/Ipratropium 3ml neb HHN PRN (13:59)
[2019-09-17] MEDS ORDERED: LORazepam 1mg tab ORAL PRN (14:00)
[2019-09-17] MEDS ORDERED: HYDROmorphone 1mg/ml Carpuject IVP PRN (14:02)
--- NOTE | 2019-09-17 14:30 | Surgery Progress Note ---
Surgery Progress Note Subjective Symptoms: improved, tolerating diet, voiding well, passing flatus, pain decreased Objective Last 24 Hour Vital Signs Date Time Temp Pulse Resp B/P (MAP) Pulse Ox O2 Delivery O2 Flow Rate FiO2 09/17/19 14:00 98.8 105 20 128/81 (97) 96 09/17/19 12:00 98.8 117 20 137/81 (99) 96 09/17/19 12:00 Room Air 09/17/19 11:42 109 09/17/19 10:12 98.8 09/17/19 08:04 106 09/17/19 08:00 100.4 107 21 125/70 (88) 95 09/17/19 08:00 Room Air 09/17/19 04:00 98.6 97 20 119/72 (88) 94 09/17/19 04:00 Room Air 09/17/19 03:42 98 09/17/19 00:59 100.1 09/17/19 00:00 Room Air 09/17/19 00:00 100.9 108 28 111/70 (84) 98 09/16/19 23:00 108 35 112/66 (81) 96 09/16/19 22:00 114 36 128/67 (87) 95 09/16/19 21:00 102 35 119/72 (88) 98 09/16/19 20:00 Room Air 09/16/19 20:00 99.4 110 34 119/72 (88) 99 09/16/19 19:00 35 112/60 (77) 96 09/16/19 18:00 101 26 113/68 (83) 96 09/16/19 17:15 Room Air 09/16/19 17:00 108 24 118/70 (86) 95 09/16/19 16:54 Room Air 09/16/19 16:45 108 09/16/19 16:45 98.9 102 26 111/64 (80) 97 09/16/19 16:15 98.5 98 19 136/82 98 Room Air 09/16/19 15:51 98.5 120 23 140/86 97 2.0 I&O Intake and Output 09/16/19 09/17/19 18:59 06:59 Intake Total 200 ml 1880.000 ml Output Total 1100 ml 1850 ml Balance -900 ml 30.000 ml Intake Oral 200 ml 480 ml IV Total 1400.000 ml Output Urine Total 1100 ml 1850 ml # Voids 1 1 Dressing: saturated Wound: other Drains: other Cardiovascular: RSR Respiratory: clear, other Abdomen: soft, present bowel sounds, non-distended Extremities: no tenderness, no cyanosis, other Laboratory Tests Test 09/16/19 18:50 09/17/19 05:53 Urine Opiates Screen Negative (NEGATIVE) Urine Barbiturates Screen Negative (NEGATIVE) Phencyclidine (PCP) Screen Negative (NEGATIVE) Urine Amphetamines Screen Negative (NEGATIVE) Urine Benzodiazepines Screen Negative (NEGATIVE) Urine Cocaine Screen Negative (NEGATIVE) Urine Marijuana (THC) Screen Negative (NEGATIVE) White Blood Count 11.0 K/UL (4.8-10.8) H Red Blood Count 4.21 M/UL (4.70-6.10) L Hemoglobin 12.3 G/DL (14.2-18.0) L Hematocrit 35.1 % (42.0-52.0) L Mean Corpuscular Volume 83 FL (80-99) Mean Corpuscular Hemoglobin 29.3 PG (27.0-31.0) Mean Corpuscular Hemoglobin Concent 35.1 G/DL (32.0-36.0) Red Cell Distribution Width 10.9 % (11.6-14.8) L Platelet Count 185 K/UL (150-450) Mean Platelet Volume 6.2 FL (6.5-10.1) L Neutrophils (%) (Auto) 70.5 % (45.0-75.0) Lymphocytes (%) (Auto) 15.3 % (20.0-45.0) L Monocytes (%) (Auto) 12.4 % (1.0-10.0) H Eosinophils (%) (Auto) 0.9 % (0.0-3.0) Basophils (%) (Auto) 0.9 % (0.0-2.0) Erythrocyte Sedimentation Rate 36 MM/HR (0-20) H Sodium Level 140 MMOL/L (136-145) Potassium Level 3.9 MMOL/L (3.5-5.1) Chloride Level 108 MMOL/L (98-107) H Carbon Dioxide Level 25 MMOL/L (21-32) Anion Gap 7 mmol/L (5-15) Blood Urea Nitrogen 10 mg/dL (7-18) Creatinine 1.1 MG/DL (0.55-1.30) Estimat Glomerular Filtration Rate > 60 mL/min (>60) Glucose Level 103 MG/DL (74-106) Hemoglobin A1c 5.8 % (4.3-6.0) Calcium Level 8.1 MG/DL (8.5-10.1) L Total Bilirubin 0.7 MG/DL (0.2-1.0) Aspartate Amino Transf (AST/SGOT) 19 U/L (15-37) Alanine Aminotransferase (ALT/SGPT) 32 U/L (12-78) Alkaline Phosphatase 82 U/L (46-116) C-Reactive Protein, Quantitative 29.5 mg/dL (0.00-0.90) H Pro-B-Type Natriuretic Peptide 1031 pg/mL (0-125) H Total Protein 6.4 G/DL (6.4-8.2) Albumin 2.6 G/DL (3.4-5.0) L Globulin 3.8 g/dL Albumin/Globulin Ratio 0.7 (1.0-2.7) L Plan Problems: (1) Cellulitis of buttock, left Assessment & Plan: This is a 49-year-old male otherwise well presented with 1 week of left buttock pain progressively worsening. In ED identified to have leukocytosis, abnormal labs, large left buttock wound concerning for potential excising soft tissue infection it is open and draining with significant induration and tenderness and erythema. Pt presented on admission with large open furuncle L buttocks(L)3.2cm x (W)4cm. Base of wound has 100% slough with surrounding erythematous and indurated borders(L)3.5cm x (W)6.8cm. Moderate amt of purulent exudate noted.Mild elevation in skin temp periwound. Wound is by the bedside and cultures were taken of the drainage. There is no area of significant fluctuance or underlying abscess that could be identified. It is a large open furuncle on the left buttocks with a significant induration cellulitis with potential duration of week or even longer. Furthermore on evaluation patient has multiple small areas of less than 1 cm carbuncles noted scattered throughout his lower back. With patient's permission at the bedside some of the purulent dermal exudate was evacuated for the culture. The wound was cleansed. The opening was palpated and examined with minimal tunneling tracking and no deep pockets. We will need to monitor closely for improvement or progression Recommend IV antibiotics as per infectious disease Local wound care with washing wound daily, skin protectant, OPTi foam dressing Trend labs Okay for diet Okay for activity as tolerated Thank you for let me participate in patient's care will follow with recommendations improved no acute surgery needed but may need debridement of non viable tissue as cellulitis resolves CT with: * Focal skin thickening with subcutaneous inflammatory stranding involving the skin of the left lower back/left upper gluteal region concerning for cellulitis. No underlying subcutaneous fluid collection or abscess. No appreciable ulcer in this region however correlation with physical exam findings is recommended. * Equivocal thickening of the wall the bladder. Correlate with urinalysis to exclude cystitis. * Trace right pleural effusion and bibasilar airspace opacities which may related to compressive atelectasis. Developing infectious infiltrate can also be considered. * Splenomegaly with the spleen measuring 13 cm in length. * Mild to moderate colonic stool burden suggesting constipation. * No evidence of bowel obstruction or definite inflammatory stranding within the is anterior. Appendix is normal. Additional findings as above. (2) Cellulitis Stone Coronado Sep 17, 2019 14:30
--- NOTE | 2019-09-17 15:15 | Cardiology Report ---
APPROVED REPORT EXAM: Two-dimensional and M-mode echocardiogram with Doppler and color Doppler. INDICATION Dyspnea M-Mode DIMENSIONS IVSd0.9 (0.7-1.1cm)Left Atrium (MM)3.7 (1.6-4.0cm) LVDd3.8 (3.5-5.6cm)Aortic Root2.8 (2.0-3.7cm) PWd1.0 (0.7-1.1cm)Aortic Cusp Exc.2.1 (1.5-2.0cm) LVDs2.3 (2.5-4.0cm) PWs1.7 cm Normal left ventricular chamber size, systolic function and wall motion. Left ventricular ejection fraction estimated to be 70 %. No left ventricular hypertrophy. No evidence of pericardial effusion. Left atrial size at upper limits of normal. Right atrial size at upper limits of normal. Right ventricular chamber size is within normal limits. Focal aortic valve sclerosis with adequate cusp excursion. Thickened mitral valve leaflets with normal excursion. Mitral annulus and aortic root calcification. Normal pulmonic valve structure. Normal tricuspid valve structure. IVC at normal size with physiologic collapse. A color flow and spectral Doppler study was performed and revealed: No aortic regurgitation. Trace mitral regurgitation. Mitral inflow indicates normal left ventricular diastolic function. Trace tricuspid regurgitation. Tricuspid systolic velocities suggests peak right ventricular systolic pressure of 16 mmHg. Pulmonic regurgitation present.
--- NOTE | 2019-09-17 19:31 | Infectious Diseases Prog Note ---
Assessment/Plan Assessment/Plan Full consult dictated: A) 1) left buttock soft tissue infection - CT without obvious abscess 2) sepsis 3) HIV P) 1) vancomycin and cefepime 2) check cultures, labs 3) surgery f/u 4) d/w Dr. Cuellar 5) thank you Subjective Allergies: Coded Allergies: No Known Allergies (Unverified , 09/16/19) Objective Vital Signs Last 24 Hour Vital Signs Date Time Temp Pulse Resp B/P (MAP) Pulse Ox O2 Delivery O2 Flow Rate FiO2 09/17/19 16:00 Room Air 09/17/19 16:00 98.8 110 20 120/81 (94) 96 09/17/19 15:34 118 09/17/19 14:00 98.8 105 20 128/81 (97) 96 09/17/19 12:00 98.8 117 20 137/81 (99) 96 09/17/19 12:00 Room Air 09/17/19 11:42 109 09/17/19 10:12 98.8 09/17/19 08:04 106 09/17/19 08:00 100.4 107 21 125/70 (88) 95 09/17/19 08:00 Room Air 09/17/19 04:00 98.6 97 20 119/72 (88) 94 09/17/19 04:00 Room Air 09/17/19 03:42 98 09/17/19 00:59 100.1 09/17/19 00:00 Room Air 09/17/19 00:00 100.9 108 28 111/70 (84) 98 09/16/19 23:00 108 35 112/66 (81) 96 09/16/19 22:00 114 36 128/67 (87) 95 09/16/19 21:00 102 35 119/72 (88) 98 09/16/19 20:00 Room Air 09/16/19 20:00 99.4 110 34 119/72 (88) 99 Height (Feet): 6 Height (Inches): 3.00 Weight (Pounds): 212 Microbiology Date/Time Source Procedure Growth Status 09/16/19 15:59 Nasal Nares - Final Complete 09/16/19 15:59 Nasal Nares - Final Complete Laboratory Tests Test 09/17/19 05:53 White Blood Count 11.0 K/UL (4.8-10.8) H Red Blood Count 4.21 M/UL (4.70-6.10) L Hemoglobin 12.3 G/DL (14.2-18.0) L Hematocrit 35.1 % (42.0-52.0) L Mean Corpuscular Volume 83 FL (80-99) Mean Corpuscular Hemoglobin 29.3 PG (27.0-31.0) Mean Corpuscular Hemoglobin Concent 35.1 G/DL (32.0-36.0) Red Cell Distribution Width 10.9 % (11.6-14.8) L Platelet Count 185 K/UL (150-450) Mean Platelet Volume 6.2 FL (6.5-10.1) L Neutrophils (%) (Auto) 70.5 % (45.0-75.0) Lymphocytes (%) (Auto) 15.3 % (20.0-45.0) L Monocytes (%) (Auto) 12.4 % (1.0-10.0) H Eosinophils (%) (Auto) 0.9 % (0.0-3.0) Basophils (%) (Auto) 0.9 % (0.0-2.0) Erythrocyte Sedimentation Rate 36 MM/HR (0-20) H Sodium Level 140 MMOL/L (136-145) Potassium Level 3.9 MMOL/L (3.5-5.1) Chloride Level 108 MMOL/L (98-107) H Carbon Dioxide Level 25 MMOL/L (21-32) Anion Gap 7 mmol/L (5-15) Blood Urea Nitrogen 10 mg/dL (7-18) Creatinine 1.1 MG/DL (0.55-1.30) Estimat Glomerular Filtration Rate > 60 mL/min (>60) Glucose Level 103 MG/DL (74-106) Hemoglobin A1c 5.8 % (4.3-6.0) Calcium Level 8.1 MG/DL (8.5-10.1) L Total Bilirubin 0.7 MG/DL (0.2-1.0) Aspartate Amino Transf (AST/SGOT) 19 U/L (15-37) Alanine Aminotransferase (ALT/SGPT) 32 U/L (12-78) Alkaline Phosphatase 82 U/L (46-116) C-Reactive Protein, Quantitative 29.5 mg/dL (0.00-0.90) H Pro-B-Type Natriuretic Peptide 1031 pg/mL (0-125) H Total Protein 6.4 G/DL (6.4-8.2) Albumin 2.6 G/DL (3.4-5.0) L Globulin 3.8 g/dL Albumin/Globulin Ratio 0.7 (1.0-2.7) L Current Medications Medications (Trade) Dose Ordered Sig/Gabino Route PRN Reason Start Time Stop Time Status Last Admin Dose Admin Acetaminophen (Tylenol) 650 mg Q4H PRN ORAL Mild Pain (Pain Scale 1-3) 09/17/19 13:58 10/16/19 13:57 Acetaminophen (Tylenol) 650 mg Q4H PRN ORAL fever 09/17/19 13:58 10/16/19 13:57 Albuterol/ Ipratropium (Albuterol/ Ipratropium) 3 ml Q4H PRN HHN Shortness of Breath 09/17/19 13:59 09/21/19 13:58 Cefepime HCl 2 gm/ Dextrose 55 ml @ 110 mls/hr EVERY 12 HOURS IVPB 09/17/19 21:00 09/23/19 20:59 Dextrose (Dextrose 50%) 25 ml Q30M PRN IV Hypoglycemia 09/17/19 13:58 10/16/19 13:57 Dextrose (Dextrose 50%) 50 ml Q30M PRN IV Hypoglycemia 09/17/19 13:59 10/16/19 13:58 Diphenhydramine HCl (Benadryl) 25 mg Q6H PRN ORAL Itching/Pruritis 09/17/19 13:59 10/16/19 13:58 Dolutegravir Sodium (Tivicay) 50 mg DAILY ORAL 09/18/19 09:00 10/17/19 08:59 UNV Heparin Sodium (Porcine) (Heparin 5000 units/ml) 5,000 units EVERY 12 HOURS SUBQ 09/17/19 21:00 10/16/19 20:59 Hydromorphone HCl (Dilaudid) 1 mg Q6H PRN IVP Moderate Pain (Pain Scale 4-6) 09/17/19 14:02 09/23/19 14:01 Hydromorphone HCl (Dilaudid) 2 mg Q6H PRN IVP Severe Pain (Pain Scale 7-10) 09/17/19 14:02 09/23/19 14:01 Lorazepam (Ativan) 1 mg Q4H PRN ORAL For Anxiety 09/17/19 14:00 09/23/19 17:59 Magnesium Hydroxide (Mom) 30 ml HSPRN PRN ORAL Constipation 09/17/19 21:00 10/16/19 20:59 Ondansetron HCl (Zofran) 4 mg Q6H PRN IVP Nausea & Vomiting 09/17/19 14:00 10/16/19 13:59 Vancomycin HCl (Vanco rx to dose) 1 ea DAILY PRN MISC Per rx protocol 09/17/19 14:00 10/17/19 13:59 Vancomycin HCl 750 mg/Dextrose 275 ml @ 183.333 mls/hr Q12HR@0200,1400 IVPB 09/18/19 02:00 09/23/19 01:59 Zolpidem Tartrate (Ambien) 5 mg HSPRN PRN ORAL Insomnia 09/17/19 21:00 09/23/19 20:59 Mor Hendrix MD Sep 17, 2019 19:31
[2019-09-17] MEDS ORDERED: Zolpidem 5mg tab ORAL PRN (21:00)
[2019-09-17] MEDS ORDERED: Milk of Magnesia 30ml Ud ORAL PRN (21:00)
--- NOTE | 2019-09-17 22:30 | Consultation ---
DATE OF CONSULTATION: 09/17/2019 INFECTIOUS DISEASE CONSULTATION CONSULTING PHYSICIAN: Mor Hendrxi M.D. ATTENDING PHYSICIAN: Star Brownlee M.D. REFERRING PHYSICIAN: Enrike Cuellar M.D. REASON FOR CONSULTATION: Sepsis, leukocytosis, fevers, left buttock soft tissue infection, HIV history. CHIEF COMPLAINT: The patient's chief complaint coming in to the hospital is sepsis, left buttock soft tissue infection. HISTORY OF PRESENT ILLNESS: This is a 49-year-old male, who comes to [facility] with fevers, elevated white count, SIRS criteria, sepsis, tachycardia. The patient's workup shows that he has a left buttock infected wound with cellulitis and possible underlying abscess. The patient was seen by Surgery. Case was discussed with Dr. Cuellar and antibiotics were started including vancomycin and cefepime. Wound cultures pending. MAR was noted. Orders were noted. Notes and records were reviewed. REVIEW OF SYSTEMS: CONSTITUTIONAL: He has left buttock pain and wound. May be some fatigue, but no new focal weakness. He came in with fever, chills. HEAD AND NECK: No head pain or neck pain. CARDIAC: No chest pain. GASTROINTESTINAL: No nausea or diarrhea. GENITOURINARY: No dysuria or frequency. PULMONARY: No congestion or shortness of breath. SKIN: No rash. He has left buttock wound. NEUROLOGIC: No seizures. PAST MEDICAL HISTORY: The patient has a past medical history of HIV and is on HAART therapy. T-cell count and viral load are unknown. However, he does follow HIV physician, Dr. Zapien. He has no history of diabetes or hypertension. He is mildly anemic. Again, history of HIV. ALLERGIES: No known drug allergies. SOCIAL HISTORY: Currently is negative for IV drug abuse, smoking, or alcohol. FAMILY HISTORY: Noncontributory. ALLERGIES: No known allergies. MEDICATIONS: Upon reviewing the MAR, he is on following medications. He is on dolutegravir or Tivicay, vancomycin, cefepime, zolpidem, magnesium, Dilaudid, hydromorphone, lorazepam, Vanco, acetaminophen. I believe he is going to take his other HIV medication from home, which is Juluca or dolutegravir/ rilpivirine. Again medications here are antibiotics, Vanco, cefepime, acetaminophen, diphenhydramine, lorazepam, Zofran, hydromorphone, zolpidem. PHYSICAL EXAMINATION: VITAL SIGNS: Temperature 98.8, pulse rate 110, respiratory rate 20, blood pressure 120/81, saturation 96%, T-max 102.9. GENERAL: Alert, responsive. No distress. HEAD AND NECK: Oral exam, no thrush. Eye exam, no icterus. Normocephalic. Neck is supple. HEART: Regular. No gallop or murmur. Tachycardiac. ABDOMEN: Soft. Positive bowel sounds. Nontender. LUNGS: Clear bilaterally. No rales. SKIN: His left buttock wound was reviewed. It looks like infected wound and cellulitis and includes underlying abscess. Surgery note was reviewed also. MUSCULOSKELETAL: No effusion. Legs are without cellulitis. PERIPHERAL VASCULAR: No cyanosis. GENITOURINARY: No Pino. LINE SITES: Without phlebitis. NEUROLOGIC: Intact. Nonfocal. LABORATORY DATA: White count 11.0, hemoglobin 12.3. White count has been high as 14.1. Creatinine 1.1. Urinalysis, leukocyte esterase negative. Wound culture of left buttocks pending. IMAGING STUDIES: CT scan of the abdomen and pelvis was consistent with inflammatory stranding involving skin of left lower back and gluteal region or buttock concerning for cellulitis. There is no fluid collection and looks like atelectasis. Also, concern for developing underlying infiltrate. Chest x-ray showed atelectasis versus infiltrate. Wound cultures pending. ASSESSMENT AND PLAN: 1. The patient has sepsis, fevers, leukocytosis. The patient has SIRS criteria. Most likely source is left buttock infected wound with cellulitis, possible underlying abscess. The patient has been seen by Surgery. No obvious abscess currently. CT scan showed no obvious abscess either. At this time, we will continue vancomycin and cefepime for MRSA gram-negative coverage. Continue vancomycin and Rocephin for left buttock infected with cellulitis, rule out abscess with sepsis, fevers, leukocytosis. Rule out community-acquired pneumonia. We will check followup chest x-ray. UA is benign. Continue vancomycin and cefepime pending cultures for MRSA gram-negative coverage. 2. HIV. The patient is currently on HAART therapy medications Sybil. He will get this from home. The patient is to be followed up by his primary HIV physician for further management of his HIV. I do not think it is necessary he get CD4 and viral load at this time since he looks like he is stable on this current regimen. 3. Mild anemia. 4. Acute kidney injury. 5. No history of diabetes, hypertension. 6. No known allergies. 7. Social history is negative. 8. Family history is noncontributory. 9. MAR is noted. 10. Case discussed with RN. 11. Continue treatment per primary consultants. 12. Case discussed with Dr. Cuellar. 13. Surgery followup. Mor Hendrix M.D. DR: ROXANNE JOB#: [id number] CC:
[2019-09-18] VITALS: BP 147/80
[2019-09-18] MEDS ORDERED: Vancomycin 750 MG in D5W 275 ML IVPB SCH (02:00)
[2019-09-18 04:00] VITALS: BP 148/92
[2019-09-18 08:00] VITALS: BP 131/78
[2019-09-18 08:50] LABS: BASOPHILS % (AUTO) 0.8 % (0.0-2.0); EOSINOPHILS % (AUTO) 3.7 % (0.0-3.0); HEMATOCRIT 36.4 % (42.0-52.0); HEMOGLOBIN 12.5 G/DL (14.2-18.0); LYMPHOCYTES % (AUTO) 17.3 % (20.0-45.0); MEAN CORPUSCULAR VOLUME 84 FL (80-99); MONOCYTES % (AUTO) 8.8 % (1.0-10.0); NEUTROPHILS % (AUTO) 69.4 % (45.0-75.0); PLATELET COUNT 215 K/UL (150-450); RED BLOOD COUNT 4.33 M/UL (4.70-6.10); RED CELL DISTRIBUTION WIDTH 10.9 % (11.6-14.8); WHITE BLOOD COUNT 8.2 K/UL (4.8-10.8)
[2019-09-18] MEDS: Heparin 5000 units/ml inj SUBQ SCH ×2 (08:56→20:59)
[2019-09-18] MEDS: Cefepime HCl 2 GM in D5W 55 ML IVPB SCH ×2 (08:58→20:58)
[2019-09-18] MEDS ORDERED: Dolutegravir Sodium 50mg tab ORAL SCH (09:00)
[2019-09-18 09:24] LABS: ANION GAP 9 mmol/L (5-15); BLOOD UREA NITROGEN 9 mg/dL (7-18); CALCIUM 8.5 MG/DL (8.5-10.1); CARBON DIOXIDE 26 MMOL/L (21-32); CHLORIDE 106 MMOL/L (98-107); POTASSIUM 3.5 MMOL/L (3.5-5.1); SODIUM 141 MMOL/L (136-145)
[2019-09-18 11:26] VITALS: BP 132/75
--- NOTE | 2019-09-18 13:18 | General Progress Note ---
Assessment/Plan Status: other - critical Assessment/Plan: #Severe sepsis secondary to skin abscess in the left buttock area and gram- positive bacteremia Admitted to ICU--> step down IVF, will dc given elevated bnp cefepime and Vancomycin ID consult Dr. Silva Surgery consult Dr. Coroando for I&D wound care consult check cultures, blood and wound: Repeat blood cultures Follow-up final cultures and sensitivity #Acute respiratory failure, elevated bnp. 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 counselled regarding usage I spent 40 minutes on this patient's case, greater than 50% spent on counselling and care coordination d/w Dr. Raheem Payne (primary) and Dr. Silva The time of my note may not reflect the time of my patient encounter. Subjective Date patient seen: Sep 18, 2019 Time patient seen: 13:15 Allergies: Coded Allergies: No Known Allergies (Unverified , 09/16/19) All Systems: reviewed and negative except above Subjective Patient denies fevers, chills, chest pain, shortness of breath, dizziness Objective Last 24 Hour Vital Signs Date Time Temp Pulse Resp B/P (MAP) Pulse Ox O2 Delivery O2 Flow Rate FiO2 09/18/19 11:26 99.7 105 16 132/75 (94) 96 09/18/19 08:00 133 09/18/19 08:00 99.7 107 18 131/78 (95) 95 09/18/19 04:00 98.2 106 20 148/92 (110) 96 09/18/19 04:00 98 09/18/19 00:00 98.8 100 20 147/80 (102) 97 09/18/19 00:00 107 09/17/19 22:29 98.8 09/17/19 20:00 106 09/17/19 20:00 Room Air 09/17/19 20:00 99.0 101 20 140/85 (103) 98 09/17/19 16:00 Room Air 09/17/19 16:00 98.8 110 20 120/81 (94) 96 09/17/19 15:34 118 09/17/19 14:00 98.8 105 20 128/81 (97) 96 Intake and Output 09/17/19 09/18/19 19:00 07:00 Intake Total 500 ml Balance 500 ml IV Total 500 ml # Voids 1 Laboratory Tests 09/18/19 07:05: White Blood Count 8.2, Red Blood Count 4.33L, Hemoglobin 12.5L, Hematocrit 36.4L , Mean Corpuscular Volume 84, Mean Corpuscular Hemoglobin 28.9, Mean Corpuscular Hemoglobin Concent 34.5, Red Cell Distribution Width 10.9L, Platelet Count 215, Mean Platelet Volume 5.7L, Neutrophils (%) (Auto) 69.4, Lymphocytes (%) (Auto) 17.3L, Monocytes (%) (Auto) 8.8, Eosinophils (%) (Auto) 3.7H, Basophils (%) (Auto) 0.8, Sodium Level 141, Potassium Level 3.5, Chloride Level 106, Carbon Dioxide Level 26, Anion Gap 9, Blood Urea Nitrogen 9, Creatinine 1.0, Estimat Glomerular Filtration Rate > 60, Glucose Level 97, Calcium Level 8.5 09/18/19 12:30: Vancomycin Level Trough [Pending] Height (Feet): 6 Height (Inches): 3.00 Weight (Pounds): 212 Objective GENERAL: No acute distress, appears comfortable, alert HEENT: NCAT, non-icteric eyes, pupils PERRLA Neck: No cervical lymphadenopathy, trachea midline CV: Regular rate and rhythm, no murmurs rubs or gallops RESP: Clear to auscultation bilaterally, no wheezes/rhonchi/crackles ABD: soft, non-distended, no TTP Buttock: About 4 cm open wound, with no fluctuance, drainage of fluid nontender EXT: Normal muscle tone, +5/5 muscle strength NEURO: No obvious deficits, alert and oriented x3 Mickie Preciado DO Sep 18, 2019 13:18
[2019-09-18] MEDS ORDERED: Tubing IV Secondary IV ONE (13:31)
--- NOTE | 2019-09-18 14:16 | Surgery Progress Note ---
Surgery Progress Note Subjective Additional Comments leukocytosis resolved exam improved feeling well comfortable improving Objective Last 24 Hour Vital Signs Date Time Temp Pulse Resp B/P (MAP) Pulse Ox O2 Delivery O2 Flow Rate FiO2 09/18/19 11:26 99.7 105 16 132/75 (94) 96 09/18/19 08:00 133 09/18/19 08:00 99.7 107 18 131/78 (95) 95 09/18/19 04:00 98.2 106 20 148/92 (110) 96 09/18/19 04:00 98 09/18/19 00:00 98.8 100 20 147/80 (102) 97 09/18/19 00:00 107 09/17/19 22:29 98.8 09/17/19 20:00 106 09/17/19 20:00 Room Air 09/17/19 20:00 99.0 101 20 140/85 (103) 98 09/17/19 16:00 Room Air 09/17/19 16:00 98.8 110 20 120/81 (94) 96 09/17/19 15:34 118 I&O Intake and Output 09/17/19 09/18/19 19:00 07:00 Intake Total 500 ml Balance 500 ml IV Total 500 ml # Voids 1 Dressing: saturated Wound: other Cardiovascular: RSR Respiratory: clear Abdomen: soft, flat, non-tender, present bowel sounds Extremities: no edema, no tenderness, no cyanosis Laboratory Tests Test 09/18/19 07:05 09/18/19 12:30 White Blood Count 8.2 K/UL (4.8-10.8) Red Blood Count 4.33 M/UL (4.70-6.10) L Hemoglobin 12.5 G/DL (14.2-18.0) L Hematocrit 36.4 % (42.0-52.0) L Mean Corpuscular Volume 84 FL (80-99) Mean Corpuscular Hemoglobin 28.9 PG (27.0-31.0) Mean Corpuscular Hemoglobin Concent 34.5 G/DL (32.0-36.0) Red Cell Distribution Width 10.9 % (11.6-14.8) L Platelet Count 215 K/UL (150-450) Mean Platelet Volume 5.7 FL (6.5-10.1) L Neutrophils (%) (Auto) 69.4 % (45.0-75.0) Lymphocytes (%) (Auto) 17.3 % (20.0-45.0) L Monocytes (%) (Auto) 8.8 % (1.0-10.0) Eosinophils (%) (Auto) 3.7 % (0.0-3.0) H Basophils (%) (Auto) 0.8 % (0.0-2.0) Sodium Level 141 MMOL/L (136-145) Potassium Level 3.5 MMOL/L (3.5-5.1) Chloride Level 106 MMOL/L (98-107) Carbon Dioxide Level 26 MMOL/L (21-32) Anion Gap 9 mmol/L (5-15) Blood Urea Nitrogen 9 mg/dL (7-18) Creatinine 1.0 MG/DL (0.55-1.30) Estimat Glomerular Filtration Rate > 60 mL/min (>60) Glucose Level 97 MG/DL (74-106) Calcium Level 8.5 MG/DL (8.5-10.1) Vancomycin Level Trough 4.3 ug/mL (5.0-12.0) L Plan Problems: (1) Cellulitis of buttock, left Assessment & Plan: This is a 49-year-old male otherwise well presented with 1 week of left buttock pain progressively worsening. In ED identified to have leukocytosis, abnormal labs, large left buttock wound concerning for potential excising soft tissue infection it is open and draining with significant induration and tenderness and erythema. Pt presented on admission with large open furuncle L buttocks(L)3.2cm x (W)4cm. Base of wound has 100% slough with surrounding erythematous and indurated borders(L)3.5cm x (W)6.8cm. Moderate amt of purulent exudate noted.Mild elevation in skin temp periwound. Wound is by the bedside and cultures were taken of the drainage. There is no area of significant fluctuance or underlying abscess that could be identified. It is a large open furuncle on the left buttocks with a significant induration cellulitis with potential duration of week or even longer. Furthermore on evaluation patient has multiple small areas of less than 1 cm carbuncles noted scattered throughout his lower back. With patient's permission at the bedside some of the purulent dermal exudate was evacuated for the culture. The wound was cleansed. The opening was palpated and examined with minimal tunneling tracking and no deep pockets. We will need to monitor closely for improvement or progression Recommend IV antibiotics as per infectious disease Local wound care with washing wound daily, skin protectant, OPTi foam dressing Trend labs Okay for diet Okay for activity as tolerated Thank you for let me participate in patient's care will follow with recommendations improved no acute surgery needed but may need debridement of non viable tissue as cellulitis resolves may plan for debridement tomorrow then wound care and d/c CT with: * Focal skin thickening with subcutaneous inflammatory stranding involving the skin of the left lower back/left upper gluteal region concerning for cellulitis. No underlying subcutaneous fluid collection or abscess. No appreciable ulcer in this region however correlation with physical exam findings is recommended. * Equivocal thickening of the wall the bladder. Correlate with urinalysis to exclude cystitis. * Trace right pleural effusion and bibasilar airspace opacities which may related to compressive atelectasis. Developing infectious infiltrate can also be considered. * Splenomegaly with the spleen measuring 13 cm in length. * Mild to moderate colonic stool burden suggesting constipation. * No evidence of bowel obstruction or definite inflammatory stranding within the is anterior. Appendix is normal. Additional findings as above. (2) Cellulitis Stone Coronado Sep 18, 2019 14:16
[2019-09-18] MEDS: Vancomycin 1gm/D5W 275ml IVPB SCH ×4 (14:23→21:00)
[2019-09-18 16:00] VITALS: BP 125/73
[2019-09-18] MEDS: JULUCA ORAL SCH (16:18)
[2019-09-18 20:00] VITALS: BP_SYST 120; BP_SYST 123; BP_DIAS 69; BP_DIAS 77
[2019-09-19] MEDS: Vancomycin 1gm/D5W 275ml IVPB SCH ×2 (05:33)
[2019-09-19 08:00] VITALS: BP 106/56
[2019-09-19 08:12] LABS: EOSINOPHILS % (AUTO) 4.2 % (0.0-3.0); HEMATOCRIT 38.1 % (42.0-52.0); HEMOGLOBIN 13.5 G/DL (14.2-18.0); LYMPHOCYTES % (AUTO) 23.1 % (20.0-45.0); MEAN CORPUSCULAR VOLUME 83 FL (80-99); MONOCYTES % (AUTO) 7.4 % (1.0-10.0); NEUTROPHILS % (AUTO) 64.4 % (45.0-75.0); PLATELET COUNT 299 K/UL (150-450); RED CELL DISTRIBUTION WIDTH 10.8 % (11.6-14.8)
[2019-09-19 08:22] LABS: ANION GAP 9 mmol/L (5-15); BLOOD UREA NITROGEN 12 mg/dL (7-18); CALCIUM 9.3 MG/DL (8.5-10.1); CARBON DIOXIDE 26 MMOL/L (21-32); CHLORIDE 107 MMOL/L (98-107); CREATININE 1.1 MG/DL (0.55-1.30); POTASSIUM 3.8 MMOL/L (3.5-5.1); SODIUM 142 MMOL/L (136-145)
[2019-09-19] MEDS: JULUCA ORAL SCH (09:00)
[2019-09-19] MEDS: Cefepime HCl 2 GM in D5W 55 ML IVPB SCH (09:00)
[2019-09-19] MEDS: Heparin 5000 units/ml inj SUBQ SCH ×2 (09:00→20:42)
[2019-09-19] MEDS ORDERED: NS 275ml ONE (10:40)
--- NOTE | 2019-09-19 11:41 | General Progress Note ---
Assessment/Plan Status: other - critical Assessment/Plan: #Severe sepsis secondary to skin abscess in the left buttock area and gram- positive bacteremia Admitted to ICU--> step down IVF, will dc given elevated bnp cefepime and Vancomycin ID consult Dr. Silva Surgery consult Dr. Coronado for I&D wound care consult check cultures, blood and wound: Repeat blood cultures Follow-up final cultures and sensitivity echo shows no vegetations # Insomnia # Anxiety restart home meds: gabapentin, zyprexa, gabapentin, belsomra #Acute respiratory failure, elevated bnp. 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 counselled regarding usage I spent 40 minutes on this patient's case, greater than 50% spent on counselling and care coordination d/w Dr. Raheem Payne (primary) and Dr. Silva The time of my note may not reflect the time of my patient encounter. Subjective Date patient seen: Sep 19, 2019 Time patient seen: 11:38 Allergies: Coded Allergies: No Known Allergies (Unverified , 09/16/19) Subjective difficulty sleeping and anxious to go home denies fevers or chills pain controlled Objective Last 24 Hour Vital Signs Date Time Temp Pulse Resp B/P (MAP) Pulse Ox O2 Delivery O2 Flow Rate FiO2 09/19/19 08:00 97.5 132 18 106/56 (73) 97 09/19/19 04:00 88 09/19/19 00:00 82 09/18/19 20:00 97.8 92 18 123/77 (92) 95 09/18/19 20:00 90 09/18/19 16:00 100 09/18/19 16:00 99.7 100 18 125/73 (90) 95 09/18/19 12:00 100 Intake and Output 09/18/19 09/19/19 19:00 07:00 Intake Total 240 ml Output Total 500 ml Balance -260 ml Intake Oral 240 ml Output Urine Total 500 ml # Voids 1 # Bowel Movements 1 Laboratory Tests 09/18/19 12:30: Vancomycin Level Trough 4.3L 09/19/19 06:58: White Blood Count 7.0, Red Blood Count 4.60L, Hemoglobin 13.5L, Hematocrit 38.1L , Mean Corpuscular Volume 83, Mean Corpuscular Hemoglobin 29.4, Mean Corpuscular Hemoglobin Concent 35.5, Red Cell Distribution Width 10.8L, Platelet Count 299, Mean Platelet Volume 5.3L, Neutrophils (%) (Auto) 64.4, Lymphocytes (%) (Auto) 23.1, Monocytes (%) (Auto) 7.4, Eosinophils (%) (Auto) 4.2H, Basophils (%) (Auto) 1.0, Sodium Level 142, Potassium Level 3.8, Chloride Level 107, Carbon Dioxide Level 26, Anion Gap 9, Blood Urea Nitrogen 12, Creatinine 1.1, Estimat Glomerular Filtration Rate > 60, Glucose Level 101, Calcium Level 9.3, Pro-B-Type Natriuretic Peptide 306H Height (Feet): 6 Height (Inches): 3.00 Weight (Pounds): 208 Objective GENERAL: No acute distress, appears comfortable, alert HEENT: NCAT, non-icteric eyes, pupils PERRLA Neck: No cervical lymphadenopathy, trachea midline CV: Regular rate and rhythm, no murmurs rubs or gallops RESP: Clear to auscultation bilaterally, no wheezes/rhonchi/crackles ABD: soft, non-distended, no TTP Buttock: About 4 cm open wound, with min fluctuance, drainage of fluid min tender EXT: Normal muscle tone, +5/5 muscle strength NEURO: No obvious deficits, alert and oriented x3 Mickie Preciado DO Sep 19, 2019 11:41
[2019-09-19] MEDS ORDERED: Memantine 10mg tab ORAL SCH (11:45)
[2019-09-19 12:00] VITALS: BP 115/73
[2019-09-19] MEDS: Vancomycin 1.5gm/NS Premix IVPB SCH ×2 (14:24→21:37)
--- NOTE | 2019-09-19 14:38 | Surgery Progress Note ---
Surgery Progress Note Subjective Symptoms: improved, tolerating diet, voiding well, passing flatus, pain decreased Objective Last 24 Hour Vital Signs Date Time Temp Pulse Resp B/P (MAP) Pulse Ox O2 Delivery O2 Flow Rate FiO2 09/19/19 12:00 97.9 95 20 115/73 (87) 96 09/19/19 12:00 96 09/19/19 08:00 106 09/19/19 08:00 97.5 132 18 106/56 (73) 97 09/19/19 04:00 88 09/19/19 00:00 82 09/18/19 20:00 97.8 92 18 123/77 (92) 95 09/18/19 20:00 90 09/18/19 16:00 100 09/18/19 16:00 99.7 100 18 125/73 (90) 95 I&O Intake and Output 09/18/19 09/19/19 19:00 07:00 Intake Total 240 ml Output Total 500 ml Balance -260 ml Intake Oral 240 ml Output Urine Total 500 ml # Voids 1 # Bowel Movements 1 Dressing: saturated Wound: clean, other Cardiovascular: RSR Respiratory: clear Abdomen: soft, flat, non-tender, present bowel sounds Extremities: no edema, no tenderness, no cyanosis Laboratory Tests Test 09/19/19 06:58 09/19/19 12:38 White Blood Count 7.0 K/UL (4.8-10.8) Red Blood Count 4.60 M/UL (4.70-6.10) L Hemoglobin 13.5 G/DL (14.2-18.0) L Hematocrit 38.1 % (42.0-52.0) L Mean Corpuscular Volume 83 FL (80-99) Mean Corpuscular Hemoglobin 29.4 PG (27.0-31.0) Mean Corpuscular Hemoglobin Concent 35.5 G/DL (32.0-36.0) Red Cell Distribution Width 10.8 % (11.6-14.8) L Platelet Count 299 K/UL (150-450) Mean Platelet Volume 5.3 FL (6.5-10.1) L Neutrophils (%) (Auto) 64.4 % (45.0-75.0) Lymphocytes (%) (Auto) 23.1 % (20.0-45.0) Monocytes (%) (Auto) 7.4 % (1.0-10.0) Eosinophils (%) (Auto) 4.2 % (0.0-3.0) H Basophils (%) (Auto) 1.0 % (0.0-2.0) Sodium Level 142 MMOL/L (136-145) Potassium Level 3.8 MMOL/L (3.5-5.1) Chloride Level 107 MMOL/L (98-107) Carbon Dioxide Level 26 MMOL/L (21-32) Anion Gap 9 mmol/L (5-15) Blood Urea Nitrogen 12 mg/dL (7-18) Creatinine 1.1 MG/DL (0.55-1.30) Estimat Glomerular Filtration Rate > 60 mL/min (>60) Glucose Level 101 MG/DL (74-106) Calcium Level 9.3 MG/DL (8.5-10.1) Pro-B-Type Natriuretic Peptide 306 pg/mL (0-125) H Vancomycin Level Trough 4.7 ug/mL (5.0-12.0) L Plan Problems: (1) Cellulitis of buttock, left Assessment & Plan: This is a 49-year-old male otherwise well presented with 1 week of left buttock pain progressively worsening. In ED identified to have leukocytosis, abnormal labs, large left buttock wound concerning for potential excising soft tissue infection it is open and draining with significant induration and tenderness and erythema. Pt presented on admission with large open furuncle L buttocks(L)3.2cm x (W)4cm. Base of wound has 100% slough with surrounding erythematous and indurated borders(L)3.5cm x (W)6.8cm. Moderate amt of purulent exudate noted.Mild elevation in skin temp periwound. Wound is by the bedside and cultures were taken of the drainage. There is no area of significant fluctuance or underlying abscess that could be identified. It is a large open furuncle on the left buttocks with a significant induration cellulitis with potential duration of week or even longer. Furthermore on evaluation patient has multiple small areas of less than 1 cm carbuncles noted scattered throughout his lower back. With patient's permission at the bedside some of the purulent dermal exudate was evacuated for the culture. The wound was cleansed. The opening was palpated and examined with minimal tunneling tracking and no deep pockets. We will need to monitor closely for improvement or progression Recommend IV antibiotics as per infectious disease Local wound care with washing wound daily, skin protectant, OPTi foam dressing Trend labs Okay for diet Okay for activity as tolerated Thank you for let me participate in patient's care will follow with recommendations improved no acute surgery needed but may need debridement of non viable tissue as cellulitis resolves may plan for debridement tomorrow then wound care and d/c bacteremia needs to stay for IV abx until clear by ID CT with: * Focal skin thickening with subcutaneous inflammatory stranding involving the skin of the left lower back/left upper gluteal region concerning for cellulitis. No underlying subcutaneous fluid collection or abscess. No appreciable ulcer in this region however correlation with physical exam findings is recommended. * Equivocal thickening of the wall the bladder. Correlate with urinalysis to exclude cystitis. * Trace right pleural effusion and bibasilar airspace opacities which may related to compressive atelectasis. Developing infectious infiltrate can also be considered. * Splenomegaly with the spleen measuring 13 cm in length. * Mild to moderate colonic stool burden suggesting constipation. * No evidence of bowel obstruction or definite inflammatory stranding within the is anterior. Appendix is normal. Additional findings as above. (2) Cellulitis Stone Coronado Sep 19, 2019 14:38
[2019-09-19 16:00] VITALS: BP 117/70
--- NOTE | 2019-09-19 19:35 | Infectious Diseases Prog Note ---
Assessment/Plan Assessment/Plan ASSESSMENT AND PLAN: 1. mrsa left buttock wound infection/cellulitis, ? drained abscess, CT without abscess, gram + bacteremia, sepsis, leukocytosis, fevers - vancomycin - day # 3, discontinue cefepime - echo without vegetation mentioned - check identification blood cultures - monitor labs, check surveillance blood cultures - surgery f/u and wound management 2. HIV - Juluca per patient home medications, not available at [facility]. Stable on this current regimen. Patient to follow-up with HIV MD as outpatient. 3. Mild anemia. 4. Acute kidney injury. 5. No history of diabetes, hypertension. 6. No known allergies. 7. Social history is negative. 8. Family history is noncontributory. 9. MAR is noted. 10. Case discussed with RN. 11. Continue treatment per primary consultants. 12. Case discussed with Dr. Cuellar. 13. Surgery followup. Subjective Constitutional: Denies: fever HEENT: Denies: congestion Respiratory: Denies: shortness of breath Cardiovascular: Denies: chest pain Gastrointestinal/Abdominal: Denies: nausea Genitourinary: Denies: dysuria, hematuria Neurologic: Denies: headache Psychiatric: Denies: depression Skin: Denies: rash Hematologic: Denies: bleeding Musculoskeletal: Denies: pain Allergies: Coded Allergies: No Known Allergies (Unverified , 09/16/19) Objective Vital Signs Last 24 Hour Vital Signs Date Time Temp Pulse Resp B/P (MAP) Pulse Ox O2 Delivery O2 Flow Rate FiO2 09/19/19 16:00 88 09/19/19 16:00 98.1 76 18 117/70 (86) 98 09/19/19 12:00 97.9 95 20 115/73 (87) 96 09/19/19 12:00 96 09/19/19 08:00 106 09/19/19 08:00 97.5 132 18 106/56 (73) 97 09/19/19 04:00 88 09/19/19 00:00 82 09/18/19 20:00 97.8 92 18 123/77 (92) 95 09/18/19 20:00 90 Height (Feet): 6 Height (Inches): 3.00 Weight (Pounds): 208 General Appearance: no acute distress HEENT: normocephalic, atraumatic, anicteric, mucous membranes moist Respiratory/Chest: lungs clear, normal breath sounds, no respiratory distress, no accessory muscle use Cardiovascular: normal rate, regular rhythm, no gallop/murmur, no JVD Abdomen: normal bowel sounds, soft, non tender, no organomegaly, non distended Genitourinary: other - no pat Extremities: no cyanosis Skin: no rash, other - left buttock wound covered and recently placed new dressngs per patient, exam deferred by patient Neurologic/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 No underlying subcutaneous fluid collection or abscess. No appreciable ulcer in this region however correlation with physical exam findings is recommended. * Equivocal thickening of the wall the bladder. Correlate with urinalysis to exclude cystitis. * Trace right pleural effusion and bibasilar airspace opacities which may related to compressive atelectasis. Developing infectious infiltrate can also be considered. * Splenomegaly with the spleen measuring 13 cm in length. * Mild to moderate colonic stool burden suggesting constipation. * No evidence of bowel obstruction or definite inflammatory stranding within the is anterior. Appendix is normal. Additional findings as above. 2-D echo - n vegetations mentioned in report chest x-ray - atx vs infiltrate (note CT with atx at lung bases), reports reviewed Microbiology Date/Time Source Procedure Growth Status 09/16/19 12:55 Blood Blood Culture - Preliminary Gram Positive Cocci Resulted 09/16/19 20:30 Wound Gram Stain - Final Complete 09/16/19 20:30 Wound Culture - Final Staphylococcus Aureus - Mrsa Complete 09/16/19 17:00 Nasal Nares MRSA Culture - Final NO METHICILLIN RESISTANT STAPH AUREUS... Complete 09/16/19 17:00 Rectum - Final NO CARBAPENEM-RESISTANT ENTEROBACTERI... Complete Microbiology Date/Time Source Procedure Growth Status 09/16/19 20:30 Wound Gram Stain - Final Complete 09/16/19 20:30 Wound Culture - Final Staphylococcus Aureus - Mrsa Complete Laboratory Tests Test 09/19/19 06:58 09/19/19 12:38 White Blood Count 7.0 K/UL (4.8-10.8) Red Blood Count 4.60 M/UL (4.70-6.10) L Hemoglobin 13.5 G/DL (14.2-18.0) L Hematocrit 38.1 % (42.0-52.0) L Mean Corpuscular Volume 83 FL (80-99) Mean Corpuscular Hemoglobin 29.4 PG (27.0-31.0) Mean Corpuscular Hemoglobin Concent 35.5 G/DL (32.0-36.0) Red Cell Distribution Width 10.8 % (11.6-14.8) L Platelet Count 299 K/UL (150-450) Mean Platelet Volume 5.3 FL (6.5-10.1) L Neutrophils (%) (Auto) 64.4 % (45.0-75.0) Lymphocytes (%) (Auto) 23.1 % (20.0-45.0) Monocytes (%) (Auto) 7.4 % (1.0-10.0) Eosinophils (%) (Auto) 4.2 % (0.0-3.0) H Basophils (%) (Auto) 1.0 % (0.0-2.0) Sodium Level 142 MMOL/L (136-145) Potassium Level 3.8 MMOL/L (3.5-5.1) Chloride Level 107 MMOL/L (98-107) Carbon Dioxide Level 26 MMOL/L (21-32) Anion Gap 9 mmol/L (5-15) Blood Urea Nitrogen 12 mg/dL (7-18) Creatinine 1.1 MG/DL (0.55-1.30) Estimat Glomerular Filtration Rate > 60 mL/min (>60) Glucose Level 101 MG/DL (74-106) Calcium Level 9.3 MG/DL (8.5-10.1) Pro-B-Type Natriuretic Peptide 306 pg/mL (0-125) H Vancomycin Level Trough 4.7 ug/mL (5.0-12.0) L Current Medications Medications (Trade) Dose Ordered Sig/Gabino Route PRN Reason Start Time Stop Time Status Last Admin Dose Admin Acetaminophen (Tylenol) 650 mg Q4H PRN ORAL Mild Pain (Pain Scale 1-3) 09/17/19 13:58 10/16/19 13:57 09/17/19 21:59 Acetaminophen (Tylenol) 650 mg Q4H PRN ORAL fever 09/17/19 13:58 10/16/19 13:57 Albuterol/ Ipratropium (Albuterol/ Ipratropium) 3 ml Q4H PRN HHN Shortness of Breath 09/17/19 13:59 09/21/19 13:58 Dextrose (Dextrose 50%) 25 ml Q30M PRN IV Hypoglycemia 09/17/19 13:58 10/16/19 13:57 Dextrose (Dextrose 50%) 50 ml Q30M PRN IV Hypoglycemia 09/17/19 13:59 10/16/19 13:58 Diphenhydramine HCl (Benadryl) 25 mg Q6H PRN ORAL Itching/Pruritis 09/17/19 13:59 10/16/19 13:58 Gabapentin (Neurontin) 900 mg QHS ORAL 09/19/19 21:00 10/19/19 20:59 Heparin Sodium (Porcine) (Heparin 5000 units/ml) 5,000 units EVERY 12 HOURS SUBQ 09/17/19 21:00 10/16/19 20:59 09/19/19 09:00 Hydromorphone HCl (Dilaudid) 1 mg Q6H PRN IVP Moderate Pain (Pain Scale 4-6) 09/17/19 14:02 09/23/19 14:01 Hydromorphone HCl (Dilaudid) 2 mg Q6H PRN IVP Severe Pain (Pain Scale 7-10) 09/17/19 14:02 09/23/19 14:01 Lorazepam (Ativan) 1 mg Q4H PRN ORAL For Anxiety 09/17/19 14:00 09/23/19 17:59 09/18/19 01:13 Magnesium Hydroxide (Mom) 30 ml HSPRN PRN ORAL Constipation 09/17/19 21:00 10/16/19 20:59 Memantine (Namenda) 10 mg QHS ORAL 09/19/19 21:00 10/19/19 20:59 Olanzapine (ZyPREXA Zydis) 30 mg QHS ORAL 09/19/19 21:00 10/19/19 20:59 Ondansetron HCl (Zofran) 4 mg Q6H PRN IVP Nausea & Vomiting 09/17/19 14:00 10/16/19 13:59 Patient Own Medication (Patient's Own Med) 1 ea DAILY ORAL 09/18/19 16:00 10/18/19 15:59 09/19/19 09:00 Patient Own Medication (Patient's Own Med) 1 ea QHS ORAL 09/19/19 21:00 10/19/19 20:59 Vancomycin HCl (Vanco rx to dose) 1 ea DAILY PRN MISC Per rx protocol 09/17/19 14:00 10/17/19 13:59 Vancomycin/Sodium Chloride 275 ml @ 137.5 mls/ hr Q8HR IVPB 09/19/19 14:00 09/24/19 13:59 09/19/19 14:24 Mor Hendrix MD Sep 19, 2019 19:35
[2019-09-19 20:00] VITALS: BP 121/89
[2019-09-19] MEDS: Memantine 10mg tab ORAL SCH (20:40)
[2019-09-19] MEDS: ZyPREXA Zydis 10mg tab ORAL SCH (20:41)
[2019-09-19] MEDS ORDERED: BELSOMRA 20 MG ORAL SCH (21:00)
[2019-09-20] VITALS: BP 101/65
[2019-09-20] MEDS: Vancomycin 1.5gm/NS Premix IVPB SCH ×3 (05:49→21:45)
[2019-09-20 07:03] LABS: BASOPHILS % (AUTO) 0.8 % (0.0-2.0); EOSINOPHILS % (AUTO) 4.8 % (0.0-3.0); HEMATOCRIT 38.6 % (42.0-52.0); HEMOGLOBIN 13.5 G/DL (14.2-18.0); LYMPHOCYTES % (AUTO) 22.2 % (20.0-45.0); MEAN CORPUSCULAR VOLUME 83 FL (80-99); MONOCYTES % (AUTO) 7.3 % (1.0-10.0); NEUTROPHILS % (AUTO) 64.9 % (45.0-75.0); PLATELET COUNT 323 K/UL (150-450); RED BLOOD COUNT 4.64 M/UL (4.70-6.10); RED CELL DISTRIBUTION WIDTH 10.8 % (11.6-14.8); WHITE BLOOD COUNT 8.1 K/UL (4.8-10.8)
[2019-09-20 07:19] LABS: ANION GAP 6 mmol/L (5-15); BLOOD UREA NITROGEN 13 mg/dL (7-18); CALCIUM 9.3 MG/DL (8.5-10.1); CARBON DIOXIDE 30 MMOL/L (21-32); CHLORIDE 106 MMOL/L (98-107); CREATININE 1.2 MG/DL (0.55-1.30); POTASSIUM 4.5 MMOL/L (3.5-5.1); SODIUM 142 MMOL/L (136-145)
[2019-09-20 08:00] VITALS: BP 114/60
[2019-09-20] MEDS: JULUCA ORAL SCH (09:16)
[2019-09-20] MEDS: Heparin 5000 units/ml inj SUBQ SCH ×2 (09:17→21:47)
--- NOTE | 2019-09-20 09:17 | General Progress Note ---
Assessment/Plan Problem List: (1) Bacteremia due to methicillin resistant Staphylococcus aureus ICD Codes: R78.81 - Bacteremia SNOMED: 67074031094577633 (2) Severe sepsis ICD Codes: A41.9 - Sepsis, unspecified organism; R65.20 - Severe sepsis without septic shock SNOMED: 25606639 (3) Cellulitis of buttock, left ICD Codes: L03.317 - Cellulitis of buttock SNOMED: 43910631 (4) Acute respiratory failure ICD Codes: J96.00 - Acute respiratory failure, unspecified whether with hypoxia or hypercapnia SNOMED: 89753844 (5) RAZIA (acute kidney injury) ICD Codes: N17.9 - Acute kidney failure, unspecified SNOMED: 4994430, 48737366 (6) HIV (human immunodeficiency virus infection) ICD Codes: B20 - Human immunodeficiency virus [HIV] disease SNOMED: 95321754 Status: progressing, other - critical Assessment/Plan: #Severe sepsis secondary to skin abscess in the left buttock area and MRSA bacteremia Admitted to ICU--> step down s/p IVF cefepime and Vancomycin. Cefepime discontinued ID consult Dr. Silva Surgery consult Dr. Coronado for I&D wound care consult check cultures, blood and wound: Repeat blood cultures on , no growth to date Follow-up final cultures and sensitivity echo shows no vegetations # Insomnia # Anxiety restart home meds: gabapentin, zyprexa, gabapentin, belsomra #Acute respiratory failure, elevated bnp. 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 counselled regarding usage I spent 40 minutes on this patient's case, greater than 50% spent on counselling and care coordination d/w Dr. Raheem Payne (primary) and Dr. Silva i spent an additional 35 minutes, discussing case with patient, partner and consultants The time of my note may not reflect the time of my patient encounter. Subjective Date patient seen: Sep 20, 2019 ROS Limited/Unobtainable: No Constitutional: Reports: other - insomnia HEENT: Denies: no symptoms, eye pain, blurred vision, tearing, double vision, ear pain, ear discharge, nose pain, nose congestion, throat pain, throat swelling, mouth pain, mouth swelling, other Cardiovascular: Denies: no symptoms, chest pain, edema, irregular heart rate, lightheadedness, palpitations, syncope, other Respiratory: Denies: no symptoms, cough, orthopnea, shortness of breath, SOB with excertion, SOB at rest, sputum, stridor, wheezing, other Gastrointestinal/Abdominal: Denies: no symptoms, abdomen distended, abdominal pain, black stools, tarry stools, blood in stool, constipated, diarrhea, difficulty swallowing, nausea, poor appetite, poor fluid intake, rectal bleeding , vomiting, other Genitourinary: Denies: no symptoms, burning, discharge, frequency, flank pain, hematuria, incontinence, pain, urgency, other Neurologic/Psychiatric: Denies: no symptoms, anxiety, depressed, emotional problems, headache, numbness, paresthesia, pre-existing deficit, seizure, tingling, tremors, weakness, other Endocrine: Denies: no symptoms, excessive sweating, flushing, intolerance to cold, intolerance to heat, increased hunger, increased thirst, increased urine, unexplained weight gain, unexplained weight loss, other Hematologic/Lymphatic: Denies: no symptoms, anemia, easy bleeding, easy bruising, other Allergies: Coded Allergies: No Known Allergies (Unverified , 09/16/19) Subjective following up for severe sepsis secondary to buttock abscess. MRSA bacteremia. No longer tachycardic. Breathing better. Afebrile. 2D echo reviewed, no vegetations or wall motion abnormality. Objective Last 24 Hour Vital Signs Date Time Temp Pulse Resp B/P (MAP) Pulse Ox O2 Delivery O2 Flow Rate FiO2 09/20/19 04:00 79 09/20/19 00:00 82 09/20/19 00:00 99.1 90 16 101/65 (77) 96 09/19/19 20:00 98.1 89 17 121/89 (100) 98 09/19/19 20:00 88 09/19/19 16:00 88 09/19/19 16:00 98.1 76 18 117/70 (86) 98 09/19/19 12:00 97.9 95 20 115/73 (87) 96 09/19/19 12:00 96 Intake and Output 09/19/19 09/20/19 19:00 07:00 Intake Total 240 ml Balance 240 ml Intake Oral 240 ml # Voids 3 # Bowel Movements 1 Laboratory Tests 09/19/19 12:38: Vancomycin Level Trough 4.7L 09/20/19 05:30: White Blood Count 8.1, Red Blood Count 4.64L, Hemoglobin 13.5L, Hematocrit 38.6L , Mean Corpuscular Volume 83, Mean Corpuscular Hemoglobin 29.1, Mean Corpuscular Hemoglobin Concent 35.0, Red Cell Distribution Width 10.8L, Platelet Count 323, Mean Platelet Volume 5.0L, Neutrophils (%) (Auto) 64.9, Lymphocytes (%) (Auto) 22.2, Monocytes (%) (Auto) 7.3, Eosinophils (%) (Auto) 4.8H, Basophils (%) (Auto) 0.8, Sodium Level 142, Potassium Level 4.5, Chloride Level 106, Carbon Dioxide Level 30, Anion Gap 6, Blood Urea Nitrogen 13, Creatinine 1.2, Estimat Glomerular Filtration Rate > 60, Glucose Level 97, Calcium Level 9.3 Height (Feet): 6 Height (Inches): 3.00 Weight (Pounds): 210 Objective General appearance: alert, cooperative, no distress Head: Normocephalic, without obvious abnormality, atraumatic Eyes: PERRL, EOM's intact Throat: no thrush Neck: supple, no JVD Lungs: clear to auscultation bilaterally Heart: RRR, S1, S2 normal, no murmur, click, rub or gallop Abdomen: soft, non-tender. Bowel sounds normal. No masses, no organomegaly Extremities: extremities normal, atraumatic, no cyanosis or edema Pulses: 2+ and symmetric Neurologic: Grossly normal Skin: Presented on admission with large open furuncle L buttocks(L)3.2cm x (W) 4cm. Base of wound has 100% slough with surrounding erythematous and indurated borders(L)3.5cm x (W)6.8cm. Moderate amt of purulent exudate, now s/p I&D, covered with dressing. Enrike Cuellar M.D. Sep 20, 2019 09:17
[2019-09-20 12:00] VITALS: BP 121/79
--- NOTE | 2019-09-20 15:45 | Surgery Progress Note ---
Surgery Progress Note Subjective Additional Comments d/c planning outpatient f/u for wound healing Objective Last 24 Hour Vital Signs Date Time Temp Pulse Resp B/P (MAP) Pulse Ox O2 Delivery O2 Flow Rate FiO2 09/20/19 12:00 98.1 96 16 121/79 (93) 97 09/20/19 12:00 106 09/20/19 08:00 98.2 83 16 114/60 (78) 97 09/20/19 08:00 108 09/20/19 04:00 79 09/20/19 00:00 82 09/20/19 00:00 99.1 90 16 101/65 (77) 96 09/19/19 20:00 98.1 89 17 121/89 (100) 98 09/19/19 20:00 88 09/19/19 16:00 88 09/19/19 16:00 98.1 76 18 117/70 (86) 98 I&O Intake and Output 09/19/19 09/20/19 19:00 07:00 Intake Total 240 ml Balance 240 ml Intake Oral 240 ml # Voids 3 # Bowel Movements 1 Dressing: saturated Wound: clean Cardiovascular: RSR Respiratory: clear Abdomen: soft, non-tender, present bowel sounds Extremities: no edema, no tenderness, no cyanosis Laboratory Tests Test 09/20/19 05:30 09/20/19 13:00 White Blood Count 8.1 K/UL (4.8-10.8) Red Blood Count 4.64 M/UL (4.70-6.10) L Hemoglobin 13.5 G/DL (14.2-18.0) L Hematocrit 38.6 % (42.0-52.0) L Mean Corpuscular Volume 83 FL (80-99) Mean Corpuscular Hemoglobin 29.1 PG (27.0-31.0) Mean Corpuscular Hemoglobin Concent 35.0 G/DL (32.0-36.0) Red Cell Distribution Width 10.8 % (11.6-14.8) L Platelet Count 323 K/UL (150-450) Mean Platelet Volume 5.0 FL (6.5-10.1) L Neutrophils (%) (Auto) 64.9 % (45.0-75.0) Lymphocytes (%) (Auto) 22.2 % (20.0-45.0) Monocytes (%) (Auto) 7.3 % (1.0-10.0) Eosinophils (%) (Auto) 4.8 % (0.0-3.0) H Basophils (%) (Auto) 0.8 % (0.0-2.0) Sodium Level 142 MMOL/L (136-145) Potassium Level 4.5 MMOL/L (3.5-5.1) Chloride Level 106 MMOL/L (98-107) Carbon Dioxide Level 30 MMOL/L (21-32) Anion Gap 6 mmol/L (5-15) Blood Urea Nitrogen 13 mg/dL (7-18) Creatinine 1.2 MG/DL (0.55-1.30) Estimat Glomerular Filtration Rate > 60 mL/min (>60) Glucose Level 97 MG/DL (74-106) Calcium Level 9.3 MG/DL (8.5-10.1) Vancomycin Level Trough 19.1 ug/mL (5.0-12.0) H Plan Problems: (1) Cellulitis of buttock, left Assessment & Plan: This is a 49-year-old male otherwise well presented with 1 week of left buttock pain progressively worsening. In ED identified to have leukocytosis, abnormal labs, large left buttock wound concerning for potential excising soft tissue infection it is open and draining with significant induration and tenderness and erythema. Pt presented on admission with large open furuncle L buttocks(L)3.2cm x (W)4cm. Base of wound has 100% slough with surrounding erythematous and indurated borders(L)3.5cm x (W)6.8cm. Moderate amt of purulent exudate noted.Mild elevation in skin temp periwound. Wound is by the bedside and cultures were taken of the drainage. There is no area of significant fluctuance or underlying abscess that could be identified. It is a large open furuncle on the left buttocks with a significant induration cellulitis with potential duration of week or even longer. Furthermore on evaluation patient has multiple small areas of less than 1 cm carbuncles noted scattered throughout his lower back. With patient's permission at the bedside some of the purulent dermal exudate was evacuated for the culture. The wound was cleansed. The opening was palpated and examined with minimal tunneling tracking and no deep pockets. We will need to monitor closely for improvement or progression Recommend IV antibiotics as per infectious disease Local wound care with washing wound daily, skin protectant, OPTi foam dressing Trend labs Okay for diet Okay for activity as tolerated Thank you for let me participate in patient's care will follow with recommendations improved no acute surgery needed but may need debridement of non viable tissue as cellulitis resolves may plan for debridement tomorrow then wound care and d/c bacteremia needs to stay for IV abx until clear by ID CT with: * Focal skin thickening with subcutaneous inflammatory stranding involving the skin of the left lower back/left upper gluteal region concerning for cellulitis. No underlying subcutaneous fluid collection or abscess. No appreciable ulcer in this region however correlation with physical exam findings is recommended. * Equivocal thickening of the wall the bladder. Correlate with urinalysis to exclude cystitis. * Trace right pleural effusion and bibasilar airspace opacities which may related to compressive atelectasis. Developing infectious infiltrate can also be considered. * Splenomegaly with the spleen measuring 13 cm in length. * Mild to moderate colonic stool burden suggesting constipation. * No evidence of bowel obstruction or definite inflammatory stranding within the is anterior. Appendix is normal. Additional findings as above. (2) Cellulitis Stone Coronado Sep 20, 2019 15:45
[2019-09-20 16:00] VITALS: BP 120/61
[2019-09-20 20:00] VITALS: BP 142/84
[2019-09-20] MEDS: BELSOMRA 20 MG ORAL SCH (21:00)
[2019-09-20] MEDS: Memantine 10mg tab ORAL SCH (21:44)
[2019-09-20] MEDS: ZyPREXA Zydis 10mg tab ORAL SCH (21:44)
[2019-09-21] MEDS: Vancomycin 1.5gm/NS Premix IVPB SCH ×3 (06:06→21:26)
[2019-09-21 08:00] VITALS: BP 112/71
[2019-09-21] MEDS: JULUCA ORAL SCH (08:46)
[2019-09-21] MEDS: Heparin 5000 units/ml inj SUBQ SCH ×2 (08:47→21:00)
[2019-09-21 12:00] VITALS: BP 111/68
--- NOTE | 2019-09-21 14:59 | Cardiology Report ---
APPROVED REPORT EKG Measurement Heart [id number] IA [id number] <Conclusion> Sinus tachycardia Possible Left atrial enlargement Borderline ECG
--- NOTE | 2019-09-21 15:04 | Surgery Progress Note ---
Surgery Progress Note Subjective Additional Comments Patient seen and examined bedside. No acute events. Comfortable. Resting comfortably. No nausea vomiting fever chills. States he feels much better. Drainage decreasing. On IV antibiotics. Microbiology noted. Wound evaluated bedside and significantly improved since admission. Objective Last 24 Hour Vital Signs Date Time Temp Pulse Resp B/P (MAP) Pulse Ox O2 Delivery O2 Flow Rate FiO2 09/21/19 12:00 Room Air 09/21/19 12:00 76 09/21/19 12:00 97.9 87 18 111/68 (82) 96 09/21/19 09:00 Room Air 09/21/19 08:00 93 09/21/19 08:00 97.5 74 18 112/71 (85) 95 09/21/19 04:00 89 09/21/19 04:00 89 09/21/19 00:00 71 09/21/19 00:00 71 09/20/19 20:00 97.9 85 18 142/84 (103) 94 09/20/19 20:00 85 09/20/19 16:00 93 09/20/19 16:00 98.2 91 18 120/61 (80) 95 I&O Intake and Output 09/20/19 09/21/19 19:00 07:00 Intake Total 275.0 ml Balance 275.0 ml IV Total 275.0 ml # Voids 3 Dressing: saturated Wound: clean Cardiovascular: RSR Respiratory: clear Abdomen: non-tender, present bowel sounds Extremities: no edema, no tenderness, no cyanosis Plan Problems: (1) Cellulitis of buttock, left Assessment & Plan: This is a 49-year-old male otherwise well presented with 1 week of left buttock pain progressively worsening. In ED identified to have leukocytosis, abnormal labs, large left buttock wound concerning for potential excising soft tissue infection it is open and draining with significant induration and tenderness and erythema. Pt presented on admission with large open furuncle L buttocks(L)3.2cm x (W)4cm. Base of wound has 100% slough with surrounding erythematous and indurated borders(L)3.5cm x (W)6.8cm. Moderate amt of purulent exudate noted.Mild elevation in skin temp periwound. Wound is by the bedside and cultures were taken of the drainage. There is no area of significant fluctuance or underlying abscess that could be identified. It is a large open furuncle on the left buttocks with a significant induration cellulitis with potential duration of week or even longer. Furthermore on evaluation patient has multiple small areas of less than 1 cm carbuncles noted scattered throughout his lower back. With patient's permission at the bedside some of the purulent dermal exudate was evacuated for the culture. The wound was cleansed. The opening was palpated and examined with minimal tunneling tracking and no deep pockets. We will need to monitor closely for improvement or progression Recommend IV antibiotics as per infectious disease Local wound care with washing wound daily, skin protectant, OPTi foam dressing Trend labs Okay for diet Okay for activity as tolerated Thank you for let me participate in patient's care will follow with recommendations improved no acute surgery needed but may need debridement of non viable tissue as cellulitis resolves may plan for debridement tomorrow then wound care and d/c bacteremia needs to stay for IV abx until clear by ID Some non-excisional debridement performed with gauze dressings at bedside. Wound bed with good granulation tissue. Continue with dressing changes upon discharge. Outpatient follow-up. CT with: * Focal skin thickening with subcutaneous inflammatory stranding involving the skin of the left lower back/left upper gluteal region concerning for cellulitis. No underlying subcutaneous fluid collection or abscess. No appreciable ulcer in this region however correlation with physical exam findings is recommended. * Equivocal thickening of the wall the bladder. Correlate with urinalysis to exclude cystitis. * Trace right pleural effusion and bibasilar airspace opacities which may related to compressive atelectasis. Developing infectious infiltrate can also be considered. * Splenomegaly with the spleen measuring 13 cm in length. * Mild to moderate colonic stool burden suggesting constipation. * No evidence of bowel obstruction or definite inflammatory stranding within the is anterior. Appendix is normal. Additional findings as above. (2) Cellulitis Stone Coronado Sep 21, 2019 15:04
[2019-09-21 16:00] VITALS: BP 118/74
[2019-09-21] MEDS ORDERED: D5NS 1000ml IV ONE (16:13)
[2019-09-21] MEDS ORDERED: Heparin1,000 units/500ml Premix(Conc:2 units/ml) IV PRN (16:45)
[2019-09-21] MEDS ORDERED: Lidocaine 1% Plain 30 ml INJ PRN (16:45)
--- NOTE | 2019-09-21 18:49 | Infectious Diseases Prog Note ---
Assessment/Plan Assessment/Plan ASSESSMENT AND PLAN: 1. mrsa left buttock wound infection/cellulitis with mrsa bacteremia, ? drained abscess, CT without abscess, sepsis, leukocytosis, fevers - vancomycin - day # 5/14 iv vancomycin (needs 2 weeks iv abx) - can transition to oral bactrim for 2 weeks after iv vancomycin - echo without vegetation mentioned - surveillance blood culture negative - monitor labs - surgery f/u and wound management - d/w Dr. Cuellar and Dr. Coronado 2. HIV - Juluca per patient home medications, not available at [facility]. Stable on this current regimen. Patient to follow-up with HIV MD as outpatient. 3. Mild anemia. 4. Acute kidney injury. 5. No history of diabetes, hypertension. 6. No known allergies. 7. Social history is negative. 8. Family history is noncontributory. 9. MAR is noted. 10. Case discussed with RN. 11. Continue treatment per primary consultants. 12. Case discussed with Dr. Cuellar. 13. Surgery followup. Subjective Constitutional: Reports: fatigue; Denies: fever HEENT: Denies: congestion Respiratory: Denies: shortness of breath Cardiovascular: Denies: chest pain Gastrointestinal/Abdominal: Denies: nausea, vomiting, diarrhea Genitourinary: Reports: other - no foely Neurologic: Denies: headache Psychiatric: Denies: depression Skin: Denies: rash Hematologic: Denies: bleeding Musculoskeletal: Denies: pain Allergies: Coded Allergies: No Known Allergies (Unverified , 09/16/19) Objective Vital Signs Last 24 Hour Vital Signs Date Time Temp Pulse Resp B/P (MAP) Pulse Ox O2 Delivery O2 Flow Rate FiO2 09/21/19 16:00 79 09/21/19 16:00 98.2 91 18 118/74 (89) 97 09/21/19 16:00 Room Air 09/21/19 12:00 Room Air 09/21/19 12:00 76 09/21/19 12:00 97.9 87 18 111/68 (82) 96 09/21/19 09:00 Room Air 09/21/19 08:00 93 09/21/19 08:00 97.5 74 18 112/71 (85) 95 09/21/19 04:00 89 09/21/19 04:00 89 09/21/19 00:00 71 09/21/19 00:00 71 09/20/19 20:00 97.9 85 18 142/84 (103) 94 09/20/19 20:00 85 Height (Feet): 6 Height (Inches): 3.00 Weight (Pounds): 211 General Appearance: no acute distress HEENT: normocephalic, atraumatic, anicteric, mucous membranes moist Respiratory/Chest: crackles/rales, rhonchi - bilaterally Cardiovascular: normal rate, regular rhythm, no gallop/murmur, no JVD Abdomen: normal bowel sounds, soft, non tender, no organomegaly, non distended Genitourinary: other - no pat Extremities: no cyanosis Skin: no rash Neurologic/Psychiatric: prn occupational therapist II-XII grossly normal, alert, oriented x 3, responsive Lymphatic: no neck adenopathy Musculoskeletal: no effusion Objective CT abdomen and pelvis: IMPRESSION: * Focal skin thickening with subcutaneous inflammatory stranding involving the skin of the left lower back/left upper gluteal region concerning for cellulitis. No underlying subcutaneous fluid collection or abscess. No appreciable ulcer in this region however correlation with physical exam findings is recommended. * Equivocal thickening of the wall the bladder. Correlate with urinalysis to exclude cystitis. * Trace right pleural effusion and bibasilar airspace opacities which may related to compressive atelectasis. Developing infectious infiltrate can also be considered. * Splenomegaly with the spleen measuring 13 cm in length. * Mild to moderate colonic stool burden suggesting constipation. * No evidence of bowel obstruction or definite inflammatory stranding within the is anterior. Appendix is normal. Additional findings as above. 2-D echo - n vegetations mentioned in report chest x-ray - atx vs infiltrate (note CT with atx at lung bases), reports reviewed Microbiology Date/Time Source Procedure Growth Status 09/19/19 06:58 Blood Blood Culture - Preliminary NO GROWTH AFTER 24 HOURS Resulted 09/19/19 06:05 Blood Blood Culture - Preliminary NO GROWTH AFTER 24 HOURS Resulted Current Medications Medications (Trade) Dose Ordered Sig/Gabino Route PRN Reason Start Time Stop Time Status Last Admin Dose Admin Acetaminophen (Tylenol) 650 mg Q4H PRN ORAL Mild Pain (Pain Scale 1-3) 09/17/19 13:58 10/16/19 13:57 09/17/19 21:59 Acetaminophen (Tylenol) 650 mg Q4H PRN ORAL fever 09/17/19 13:58 10/16/19 13:57 Chlorhexidine Gluconate (Leah-Hex 2%) 1 applic DAILY@2000 TOPIC 09/21/19 20:00 10/21/19 19:59 Dextrose (Dextrose 50%) 25 ml Q30M PRN IV Hypoglycemia 09/17/19 13:58 10/16/19 13:57 Dextrose (Dextrose 50%) 50 ml Q30M PRN IV Hypoglycemia 09/17/19 13:59 10/16/19 13:58 Diphenhydramine HCl (Benadryl) 25 mg Q6H PRN ORAL Itching/Pruritis 09/17/19 13:59 10/16/19 13:58 Gabapentin (Neurontin) 900 mg QHS ORAL 09/19/19 21:00 10/19/19 20:59 09/20/19 21:44 Heparin Sodium (Porcine) (Heparin 5000 units/ml) 5,000 units EVERY 12 HOURS SUBQ 09/17/19 21:00 10/16/19 20:59 09/21/19 08:47 Heparin Sodium/ Sodium Chloride (Heparin 1000 units/500ml Premix) 1,000 unit ONCE PRN IV PICC LINE PLACEMENT 09/21/19 16:45 09/22/19 23:59 Hydromorphone HCl (Dilaudid) 1 mg Q6H PRN IVP Moderate Pain (Pain Scale 4-6) 09/17/19 14:02 09/23/19 14:01 Hydromorphone HCl (Dilaudid) 2 mg Q6H PRN IVP Severe Pain (Pain Scale 7-10) 09/17/19 14:02 09/23/19 14:01 Lidocaine HCl (Xylocaine 1% 30ml) 30 ml ONCE PRN INJ PICC LINE PLACEMENT 09/21/19 16:45 09/22/19 23:59 Lorazepam (Ativan) 1 mg Q4H PRN ORAL For Anxiety 09/17/19 14:00 09/23/19 17:59 09/18/19 01:13 Magnesium Hydroxide (Mom) 30 ml HSPRN PRN ORAL Constipation 09/17/19 21:00 10/16/19 20:59 Memantine (Namenda) 10 mg QHS ORAL 09/19/19 21:00 10/19/19 20:59 09/20/19 21:44 Olanzapine (ZyPREXA Zydis) 30 mg QHS ORAL 09/19/19 21:00 10/19/19 20:59 09/20/19 21:44 Ondansetron HCl (Zofran) 4 mg Q6H PRN IVP Nausea & Vomiting 09/17/19 14:00 10/16/19 13:59 Patient Own Medication (Patient's Own Med) 1 ea DAILY ORAL 09/18/19 16:00 10/18/19 15:59 09/21/19 08:46 Patient Own Medication (Patient's Own Med) 1 ea QHS ORAL 09/20/19 21:00 10/20/19 20:59 09/20/19 21:00 Vancomycin HCl (Vanco rx to dose) 1 ea DAILY PRN MISC Per rx protocol 09/17/19 14:00 10/17/19 13:59 Vancomycin/Sodium Chloride 275 ml @ 137.5 mls/ hr Q8HR IVPB 09/19/19 14:00 09/24/19 13:59 09/21/19 14:01 Mor Hendrix MD Sep 21, 2019 18:49
[2019-09-21 20:00] VITALS: BP 124/72
[2019-09-21] MEDS: BELSOMRA 20 MG ORAL SCH (21:15)
[2019-09-21] MEDS: Dyna-Hex 2% Top Sol 2oz TOPIC SCH (21:16)
[2019-09-21] MEDS: ZyPREXA Zydis 10mg tab ORAL SCH (21:16)
[2019-09-21] MEDS: Memantine 10mg tab ORAL SCH (21:16)
[2019-09-22] VITALS: BP 126/69
[2019-09-22 04:00] VITALS: BP 105/65
[2019-09-22] MEDS: Vancomycin 1.5gm/NS Premix IVPB SCH ×2 (05:36→15:31)
[2019-09-22] MEDS ORDERED: Heparin1,000 units/500ml Premix(Conc:2 units/ml) ONE (07:00)
[2019-09-22] MEDS ORDERED: Lidocaine 1% Plain 30 ml INJ ONE (07:00)
[2019-09-22 07:36] LABS: EOSINOPHILS % (AUTO) 4.4 % (0.0-3.0); HEMATOCRIT 39.2 % (42.0-52.0); HEMOGLOBIN 13.7 G/DL (14.2-18.0); LYMPHOCYTES % (AUTO) 24.5 % (20.0-45.0); MEAN CORPUSCULAR VOLUME 84 FL (80-99); MONOCYTES % (AUTO) 4.9 % (1.0-10.0); NEUTROPHILS % (AUTO) 65.3 % (45.0-75.0); PLATELET COUNT 400 K/UL (150-450); RED BLOOD COUNT 4.67 M/UL (4.70-6.10); RED CELL DISTRIBUTION WIDTH 10.8 % (11.6-14.8); WHITE BLOOD COUNT 8.1 K/UL (4.8-10.8)
[2019-09-22 07:54] LABS: ANION GAP 8 mmol/L (5-15); BLOOD UREA NITROGEN 13 mg/dL (7-18); CALCIUM 8.8 MG/DL (8.5-10.1); CARBON DIOXIDE 27 MMOL/L (21-32); CHLORIDE 107 MMOL/L (98-107); CREATININE 1.2 MG/DL (0.55-1.30); POTASSIUM 3.9 MMOL/L (3.5-5.1); SODIUM 141 MMOL/L (136-145)
[2019-09-22 08:00] VITALS: BP 106/66
[2019-09-22] MEDS: JULUCA ORAL SCH (08:48)
[2019-09-22] MEDS: Heparin 5000 units/ml inj SUBQ SCH ×2 (08:48→21:56)
[2019-09-22 12:00] VITALS: BP 103/63
--- NOTE | 2019-09-22 12:53 | General Progress Note ---
Assessment/Plan Problem List: (1) Bacteremia due to methicillin resistant Staphylococcus aureus ICD Codes: R78.81 - Bacteremia SNOMED: 73783069700407126 (2) Severe sepsis ICD Codes: A41.9 - Sepsis, unspecified organism; R65.20 - Severe sepsis without septic shock SNOMED: 98432227 (3) Cellulitis of buttock, left ICD Codes: L03.317 - Cellulitis of buttock SNOMED: 50091076 (4) Acute respiratory failure ICD Codes: J96.00 - Acute respiratory failure, unspecified whether with hypoxia or hypercapnia SNOMED: 34782403 (5) RAZIA (acute kidney injury) ICD Codes: N17.9 - Acute kidney failure, unspecified SNOMED: 6370182, 76597570 (6) HIV (human immunodeficiency virus infection) ICD Codes: B20 - Human immunodeficiency virus [HIV] disease SNOMED: 79230366 Status: progressing, other - critical Assessment/Plan: #Severe sepsis secondary to skin abscess in the left buttock area and MRSA bacteremia Admitted to ICU--> step down s/p IVF cefepime and Vancomycin. Cefepime discontinued. needs to weeks of IV Vancomycin. given immunocompromised state and hx of substance abuse, cannot discharge home with picc. This was d/w patient's ID physician Dr. Payne, Dr. Silva ,Dr. Coronado, patient and his significant other Torsten on the phone. ID consult Dr. Silva Surgery consult Dr. Coronado for I&D wound care consult check cultures, blood and wound: Repeat blood cultures on , no growth to date Follow-up final cultures and sensitivity echo shows no vegetations # Insomnia # Anxiety restart home meds: gabapentin, zyprexa, gabapentin, belsomra #Acute respiratory failure, elevated bnp. 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 counselled regarding usage case assembler consult for SNF placement I spent 40 minutes on this patient's case, greater than 50% spent on counselling and care coordination d/w Dr. Raheem Payne (primary) and Dr. Silva The time of my note may not reflect the time of my patient encounter. Subjective Date patient seen: Sep 21, 2019 ROS Limited/Unobtainable: No Constitutional: Denies: no symptoms, chills, diaphoresis, fever, malaise, weakness, other HEENT: Denies: no symptoms, eye pain, blurred vision, tearing, double vision, ear pain, ear discharge, nose pain, nose congestion, throat pain, throat swelling, mouth pain, mouth swelling, other Cardiovascular: Denies: no symptoms, chest pain, edema, irregular heart rate, lightheadedness, palpitations, syncope, other Respiratory: Denies: no symptoms, cough, orthopnea, shortness of breath, SOB with excertion, SOB at rest, sputum, stridor, wheezing, other Gastrointestinal/Abdominal: Denies: no symptoms, abdomen distended, abdominal pain, black stools, tarry stools, blood in stool, constipated, diarrhea, difficulty swallowing, nausea, poor appetite, poor fluid intake, rectal bleeding , vomiting, other Genitourinary: Denies: no symptoms, burning, discharge, frequency, flank pain, hematuria, incontinence, pain, urgency, other Neurologic/Psychiatric: Denies: no symptoms, anxiety, depressed, emotional problems, headache, numbness, paresthesia, pre-existing deficit, seizure, tingling, tremors, weakness, other Hematologic/Lymphatic: Denies: no symptoms, anemia, easy bleeding, easy bruising, other Allergies: Coded Allergies: No Known Allergies (Unverified , 09/16/19) Subjective following up for severe sepsis secondary to buttock abscess. MRSA bacteremia. No longer tachycardic. Breathing better. Afebrile. 2D echo reviewed, no vegetations or wall motion abnormality. per ID needs to weeks of IV vancomycin before transitioning to oral Objective Last 24 Hour Vital Signs Date Time Temp Pulse Resp B/P (MAP) Pulse Ox O2 Delivery O2 Flow Rate FiO2 09/22/19 12:00 98.2 79 16 103/63 (76) 98 09/22/19 12:00 76 09/22/19 09:00 Room Air 09/22/19 08:00 98.0 79 16 106/66 (79) 96 09/22/19 08:00 88 09/22/19 04:00 60 09/22/19 04:00 99.5 91 16 105/65 (78) 96 09/22/19 00:00 77 09/22/19 00:00 98.2 79 18 126/69 (88) 98 09/21/19 21:00 Room Air 09/21/19 20:00 98.1 84 17 124/72 (89) 98 09/21/19 20:00 86 09/21/19 16:00 79 09/21/19 16:00 98.2 91 18 118/74 (89) 97 09/21/19 16:00 Room Air Intake and Output 09/21/19 09/22/19 19:00 07:00 Intake Total 1200 ml 772.5 ml Balance 1200 ml 772.5 ml Intake Oral 1200 ml 360 ml IV Total 412.5 ml # Voids 8 4 # Bowel Movements 1 Laboratory Tests 09/22/19 05:57: White Blood Count 8.1, Red Blood Count 4.67L, Hemoglobin 13.7L, Hematocrit 39.2L , Mean Corpuscular Volume 84, Mean Corpuscular Hemoglobin 29.2, Mean Corpuscular Hemoglobin Concent 34.9, Red Cell Distribution Width 10.8L, Platelet Count 400, Mean Platelet Volume 5.0L, Neutrophils (%) (Auto) 65.3, Lymphocytes (%) (Auto) 24.5, Monocytes (%) (Auto) 4.9, Eosinophils (%) (Auto) 4.4H, Basophils (%) (Auto) 1.0, Sodium Level 141, Potassium Level 3.9, Chloride Level 107, Carbon Dioxide Level 27, Anion Gap 8, Blood Urea Nitrogen 13, Creatinine 1.2, Estimat Glomerular Filtration Rate > 60, Glucose Level 99, Calcium Level 8.8 Height (Feet): 6 Height (Inches): 3.00 Weight (Pounds): 209 Objective General appearance: alert, cooperative, no distress Head: Normocephalic, without obvious abnormality, atraumatic Eyes: PERRL, EOM's intact Throat: no thrush Neck: supple, no JVD Lungs: clear to auscultation bilaterally Heart: RRR, S1, S2 normal, no murmur, click, rub or gallop Abdomen: soft, non-tender. Bowel sounds normal. No masses, no organomegaly Extremities: extremities normal, atraumatic, no cyanosis or edema Pulses: 2+ and symmetric Neurologic: Grossly normal Skin: Presented on admission with large open furuncle L buttocks(L)3.2cm x (W) 4cm. Base of wound has 100% slough with surrounding erythematous and indurated borders(L)3.5cm x (W)6.8cm. Moderate amt of purulent exudate, now s/p I&D, covered with dressing. Enrike Cuellar M.D. Sep 22, 2019 12:53
--- NOTE | 2019-09-22 12:54 | General Progress Note ---
Assessment/Plan Problem List: (1) Bacteremia due to methicillin resistant Staphylococcus aureus ICD Codes: R78.81 - Bacteremia SNOMED: 61442881865687883 (2) Severe sepsis ICD Codes: A41.9 - Sepsis, unspecified organism; R65.20 - Severe sepsis without septic shock SNOMED: 77922389 (3) Cellulitis of buttock, left ICD Codes: L03.317 - Cellulitis of buttock SNOMED: 56997875 (4) Acute respiratory failure ICD Codes: J96.00 - Acute respiratory failure, unspecified whether with hypoxia or hypercapnia SNOMED: 32782919 (5) RAZIA (acute kidney injury) ICD Codes: N17.9 - Acute kidney failure, unspecified SNOMED: 5918538, 91729429 (6) HIV (human immunodeficiency virus infection) ICD Codes: B20 - Human immunodeficiency virus [HIV] disease SNOMED: 52610826 Status: progressing, other - critical Assessment/Plan: #Severe sepsis secondary to skin abscess in the left buttock area and MRSA bacteremia Admitted to ICU--> step down s/p IVF cefepime and Vancomycin. Cefepime discontinued. needs to weeks of IV Vancomycin. given immunocompromised state and hx of substance abuse, cannot discharge home with picc. This was d/w patient's ID physician Dr. Payne, Dr. Silva ,Dr. Coronado, patient and his significant other Torsten on the phone. ID consult Dr. Silva Surgery consult Dr. Coronado for I&D wound care consult check cultures, blood and wound: Repeat blood cultures on , no growth to date Follow-up final cultures and sensitivity echo shows no vegetations # Insomnia # Anxiety restart home meds: gabapentin, zyprexa, gabapentin, belsomra #Acute respiratory failure, elevated bnp. 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 counselled regarding usage case fitter consult for SNF placement I spent 40 minutes on this patient's case, greater than 50% spent on counselling and care coordination d/w Dr. Raheem Payne (primary) and Dr. Silva The time of my note may not reflect the time of my patient encounter. Subjective Date patient seen: Sep 22, 2019 ROS Limited/Unobtainable: No Constitutional: Denies: no symptoms, chills, diaphoresis, fever, malaise, weakness, other HEENT: Denies: no symptoms, eye pain, blurred vision, tearing, double vision, ear pain, ear discharge, nose pain, nose congestion, throat pain, throat swelling, mouth pain, mouth swelling, other Cardiovascular: Denies: no symptoms, chest pain, edema, irregular heart rate, lightheadedness, palpitations, syncope, other Respiratory: Denies: no symptoms, cough, orthopnea, shortness of breath, SOB with excertion, SOB at rest, sputum, stridor, wheezing, other Gastrointestinal/Abdominal: Denies: no symptoms, abdomen distended, abdominal pain, black stools, tarry stools, blood in stool, constipated, diarrhea, difficulty swallowing, nausea, poor appetite, poor fluid intake, rectal bleeding , vomiting, other Genitourinary: Denies: no symptoms, burning, discharge, frequency, flank pain, hematuria, incontinence, pain, urgency, other Neurologic/Psychiatric: Denies: no symptoms, anxiety, depressed, emotional problems, headache, numbness, paresthesia, pre-existing deficit, seizure, tingling, tremors, weakness, other Endocrine: Denies: no symptoms, excessive sweating, flushing, intolerance to cold, intolerance to heat, increased hunger, increased thirst, increased urine, unexplained weight gain, unexplained weight loss, other Hematologic/Lymphatic: Denies: no symptoms, anemia, easy bleeding, easy bruising, other Allergies: Coded Allergies: No Known Allergies (Unverified , 09/16/19) Subjective following up for severe sepsis secondary to buttock abscess. MRSA bacteremia. No longer tachycardic. Breathing better. Afebrile. 2D echo reviewed, no vegetations or wall motion abnormality. per ID needs to weeks of IV vancomycin before transitioning to oral Objective Last 24 Hour Vital Signs Date Time Temp Pulse Resp B/P (MAP) Pulse Ox O2 Delivery O2 Flow Rate FiO2 09/22/19 12:00 98.2 79 16 103/63 (76) 98 09/22/19 12:00 76 09/22/19 09:00 Room Air 09/22/19 08:00 98.0 79 16 106/66 (79) 96 09/22/19 08:00 88 09/22/19 04:00 60 09/22/19 04:00 99.5 91 16 105/65 (78) 96 09/22/19 00:00 77 09/22/19 00:00 98.2 79 18 126/69 (88) 98 09/21/19 21:00 Room Air 09/21/19 20:00 98.1 84 17 124/72 (89) 98 09/21/19 20:00 86 09/21/19 16:00 79 09/21/19 16:00 98.2 91 18 118/74 (89) 97 09/21/19 16:00 Room Air Intake and Output 09/21/19 09/22/19 19:00 07:00 Intake Total 1200 ml 772.5 ml Balance 1200 ml 772.5 ml Intake Oral 1200 ml 360 ml IV Total 412.5 ml # Voids 8 4 # Bowel Movements 1 Laboratory Tests 09/22/19 05:57: White Blood Count 8.1, Red Blood Count 4.67L, Hemoglobin 13.7L, Hematocrit 39.2L , Mean Corpuscular Volume 84, Mean Corpuscular Hemoglobin 29.2, Mean Corpuscular Hemoglobin Concent 34.9, Red Cell Distribution Width 10.8L, Platelet Count 400, Mean Platelet Volume 5.0L, Neutrophils (%) (Auto) 65.3, Lymphocytes (%) (Auto) 24.5, Monocytes (%) (Auto) 4.9, Eosinophils (%) (Auto) 4.4H, Basophils (%) (Auto) 1.0, Sodium Level 141, Potassium Level 3.9, Chloride Level 107, Carbon Dioxide Level 27, Anion Gap 8, Blood Urea Nitrogen 13, Creatinine 1.2, Estimat Glomerular Filtration Rate > 60, Glucose Level 99, Calcium Level 8.8 Height (Feet): 6 Height (Inches): 3.00 Weight (Pounds): 209 Objective General appearance: alert, cooperative, no distress Head: Normocephalic, without obvious abnormality, atraumatic Eyes: PERRL, EOM's intact Throat: no thrush Neck: supple, no JVD Lungs: clear to auscultation bilaterally Heart: RRR, S1, S2 normal, no murmur, click, rub or gallop Abdomen: soft, non-tender. Bowel sounds normal. No masses, no organomegaly Extremities: extremities normal, atraumatic, no cyanosis or edema Pulses: 2+ and symmetric Neurologic: Grossly normal Skin: Presented on admission with large open furuncle L buttocks(L)3.2cm x (W) 4cm. Base of wound has 100% slough with surrounding erythematous and indurated borders(L)3.5cm x (W)6.8cm. Moderate amt of purulent exudate, now s/p I&D, covered with dressing. Enrike Cuellar M.D. Sep 22, 2019 12:54
[2019-09-22 16:00] VITALS: BP 121/68
--- NOTE | 2019-09-22 18:20 | Surgery Progress Note ---
Surgery Progress Note Subjective Symptoms: improved, pain absent, tolerating diet, voiding well, passing flatus Additional Comments picc line for abx debating on staying here for going to facility for duration of abx therapy discussed with pcp, ID Objective Last 24 Hour Vital Signs Date Time Temp Pulse Resp B/P (MAP) Pulse Ox O2 Delivery O2 Flow Rate FiO2 09/22/19 16:00 82 09/22/19 16:00 97.9 91 16 121/68 (85) 98 09/22/19 12:00 98.2 79 16 103/63 (76) 98 09/22/19 12:00 76 09/22/19 09:00 Room Air 09/22/19 08:00 98.0 79 16 106/66 (79) 96 09/22/19 08:00 88 09/22/19 04:00 60 09/22/19 04:00 99.5 91 16 105/65 (78) 96 09/22/19 00:00 77 09/22/19 00:00 98.2 79 18 126/69 (88) 98 09/21/19 21:00 Room Air 09/21/19 20:00 98.1 84 17 124/72 (89) 98 09/21/19 20:00 86 I&O Intake and Output 09/21/19 09/22/19 19:00 07:00 Intake Total 1200 ml 772.5 ml Balance 1200 ml 772.5 ml Intake Oral 1200 ml 360 ml IV Total 412.5 ml # Voids 8 4 # Bowel Movements 1 Dressing: saturated Wound: clean Cardiovascular: RSR Respiratory: clear Abdomen: soft, non-tender, present bowel sounds Extremities: no edema, no tenderness, no cyanosis Laboratory Tests Test 09/22/19 05:57 White Blood Count 8.1 K/UL (4.8-10.8) Red Blood Count 4.67 M/UL (4.70-6.10) L Hemoglobin 13.7 G/DL (14.2-18.0) L Hematocrit 39.2 % (42.0-52.0) L Mean Corpuscular Volume 84 FL (80-99) Mean Corpuscular Hemoglobin 29.2 PG (27.0-31.0) Mean Corpuscular Hemoglobin Concent 34.9 G/DL (32.0-36.0) Red Cell Distribution Width 10.8 % (11.6-14.8) L Platelet Count 400 K/UL (150-450) Mean Platelet Volume 5.0 FL (6.5-10.1) L Neutrophils (%) (Auto) 65.3 % (45.0-75.0) Lymphocytes (%) (Auto) 24.5 % (20.0-45.0) Monocytes (%) (Auto) 4.9 % (1.0-10.0) Eosinophils (%) (Auto) 4.4 % (0.0-3.0) H Basophils (%) (Auto) 1.0 % (0.0-2.0) Sodium Level 141 MMOL/L (136-145) Potassium Level 3.9 MMOL/L (3.5-5.1) Chloride Level 107 MMOL/L (98-107) Carbon Dioxide Level 27 MMOL/L (21-32) Anion Gap 8 mmol/L (5-15) Blood Urea Nitrogen 13 mg/dL (7-18) Creatinine 1.2 MG/DL (0.55-1.30) Estimat Glomerular Filtration Rate > 60 mL/min (>60) Glucose Level 99 MG/DL (74-106) Calcium Level 8.8 MG/DL (8.5-10.1) Plan Problems: (1) Cellulitis of buttock, left Assessment & Plan: This is a 49-year-old male otherwise well presented with 1 week of left buttock pain progressively worsening. In ED identified to have leukocytosis, abnormal labs, large left buttock wound concerning for potential excising soft tissue infection it is open and draining with significant induration and tenderness and erythema. Pt presented on admission with large open furuncle L buttocks(L)3.2cm x (W)4cm. Base of wound has 100% slough with surrounding erythematous and indurated borders(L)3.5cm x (W)6.8cm. Moderate amt of purulent exudate noted.Mild elevation in skin temp periwound. Wound is by the bedside and cultures were taken of the drainage. There is no area of significant fluctuance or underlying abscess that could be identified. It is a large open furuncle on the left buttocks with a significant induration cellulitis with potential duration of week or even longer. Furthermore on evaluation patient has multiple small areas of less than 1 cm carbuncles noted scattered throughout his lower back. With patient's permission at the bedside some of the purulent dermal exudate was evacuated for the culture. The wound was cleansed. The opening was palpated and examined with minimal tunneling tracking and no deep pockets. We will need to monitor closely for improvement or progression Recommend IV antibiotics as per infectious disease Local wound care with washing wound daily, skin protectant, OPTi foam dressing Trend labs Okay for diet Okay for activity as tolerated Thank you for let me participate in patient's care will follow with recommendations improved no acute surgery needed but may need debridement of non viable tissue as cellulitis resolves bacteremia needs to stay for IV abx until clear by ID Some non-excisional debridement performed with gauze dressings at bedside. Wound bed with good granulation tissue. Continue with dressing changes upon discharge. Outpatient follow-up. CT with: * Focal skin thickening with subcutaneous inflammatory stranding involving the skin of the left lower back/left upper gluteal region concerning for cellulitis. No underlying subcutaneous fluid collection or abscess. No appreciable ulcer in this region however correlation with physical exam findings is recommended. * Equivocal thickening of the wall the bladder. Correlate with urinalysis to exclude cystitis. * Trace right pleural effusion and bibasilar airspace opacities which may related to compressive atelectasis. Developing infectious infiltrate can also be considered. * Splenomegaly with the spleen measuring 13 cm in length. * Mild to moderate colonic stool burden suggesting constipation. * No evidence of bowel obstruction or definite inflammatory stranding within the is anterior. Appendix is normal. Additional findings as above. (2) Cellulitis Stone Coronado Sep 22, 2019 18:20
[2019-09-22 20:00] VITALS: BP 127/75
[2019-09-22] MEDS: Dyna-Hex 2% Top Sol 2oz TOPIC SCH (20:08)
[2019-09-22] MEDS: Memantine 10mg tab ORAL SCH (21:55)
[2019-09-22] MEDS: ZyPREXA Zydis 10mg tab ORAL SCH (21:55)
[2019-09-22] MEDS: BELSOMRA 20 MG ORAL SCH (21:55)
[2019-09-23] VITALS: BP 148/84
[2019-09-23] MEDS: Vancomycin 1gm in D5W 275ml IVPB SCH ×3 (06:31→21:20)
[2019-09-23 08:00] VITALS: BP 107/65
[2019-09-23] MEDS: Heparin 5000 units/ml inj SUBQ SCH ×2 (09:15→21:19)
[2019-09-23] MEDS: JULUCA ORAL SCH (09:16)
[2019-09-23 12:00] VITALS: BP 103/63
--- NOTE | 2019-09-23 14:26 | Surgery Progress Note ---
Surgery Progress Note Subjective Symptoms: improved, tolerating diet, voiding well, passing flatus, BM, pain decreased Additional Comments Repeat blood cultures negative. States he is doing well. PICC line in place. No complaints. Objective Last 24 Hour Vital Signs Date Time Temp Pulse Resp B/P (MAP) Pulse Ox O2 Delivery O2 Flow Rate FiO2 09/23/19 12:00 97 09/23/19 12:00 96.8 88 18 103/63 (76) 98 09/23/19 09:00 Room Air 09/23/19 08:00 98.6 80 19 107/65 (79) 100 09/23/19 08:00 88 09/23/19 04:00 81 09/23/19 04:00 81 09/23/19 00:00 78 09/23/19 00:00 98.4 78 20 148/84 (105) 96 09/22/19 21:00 Room Air 09/22/19 20:00 97.9 77 20 127/75 (92) 97 09/22/19 20:00 77 09/22/19 16:00 82 09/22/19 16:00 97.9 91 16 121/68 (85) 98 I&O Intake and Output 09/22/19 09/23/19 19:00 07:00 Intake Total 480 ml Balance 480 ml Intake Oral 480 ml # Voids 4 2 Dressing: saturated Wound: clean Cardiovascular: RSR Respiratory: clear Abdomen: soft, flat, non-tender, present bowel sounds, non-distended Extremities: no edema, no tenderness, no cyanosis Laboratory Tests Test 09/22/19 20:50 09/23/19 04:00 Vancomycin Level Trough 27.4 ug/mL (5.0-12.0) H Random Vancomycin Level 16.6 ug/mL Plan Problems: (1) Cellulitis of buttock, left Assessment & Plan: This is a 49-year-old male otherwise well presented with 1 week of left buttock pain progressively worsening. In ED identified to have leukocytosis, abnormal labs, large left buttock wound concerning for potential excising soft tissue infection it is open and draining with significant induration and tenderness and erythema. Pt presented on admission with large open furuncle L buttocks(L)3.2cm x (W)4cm. Base of wound has 100% slough with surrounding erythematous and indurated borders(L)3.5cm x (W)6.8cm. Moderate amt of purulent exudate noted.Mild elevation in skin temp periwound. Wound is by the bedside and cultures were taken of the drainage. There is no area of significant fluctuance or underlying abscess that could be identified. It is a large open furuncle on the left buttocks with a significant induration cellulitis with potential duration of week or even longer. Furthermore on evaluation patient has multiple small areas of less than 1 cm carbuncles noted scattered throughout his lower back. With patient's permission at the bedside some of the purulent dermal exudate was evacuated for the culture. The wound was cleansed. The opening was palpated and examined with minimal tunneling tracking and no deep pockets. We will need to monitor closely for improvement or progression Recommend IV antibiotics as per infectious disease Local wound care with washing wound daily, skin protectant, OPTi foam dressing Trend labs Okay for diet Okay for activity as tolerated Thank you for let me participate in patient's care will follow with recommendations improved no acute surgery needed but may need debridement of non viable tissue as cellulitis resolves bacteremia needs to stay for IV abx until clear by ID Some non-excisional debridement performed with gauze dressings at bedside. Wound bed with good granulation tissue. Continue with dressing changes upon discharge. Outpatient follow-up. CT with: * Focal skin thickening with subcutaneous inflammatory stranding involving the skin of the left lower back/left upper gluteal region concerning for cellulitis. No underlying subcutaneous fluid collection or abscess. No appreciable ulcer in this region however correlation with physical exam findings is recommended. * Equivocal thickening of the wall the bladder. Correlate with urinalysis to exclude cystitis. * Trace right pleural effusion and bibasilar airspace opacities which may related to compressive atelectasis. Developing infectious infiltrate can also be considered. * Splenomegaly with the spleen measuring 13 cm in length. * Mild to moderate colonic stool burden suggesting constipation. * No evidence of bowel obstruction or definite inflammatory stranding within the is anterior. Appendix is normal. Additional findings as above. (2) Cellulitis Stone Coronado Sep 23, 2019 14:25
--- NOTE | 2019-09-23 15:59 | Infectious Diseases Prog Note ---
Assessment/Plan Assessment/Plan ASSESSMENT AND PLAN: 1. mrsa left buttock wound infection/cellulitis with mrsa bacteremia, ? drained abscess, CT without abscess, sepsis, leukocytosis, fevers - vancomycin - day # 7/14 iv vancomycin (needs 2 weeks iv abx) - can transition to oral bactrim for 2 weeks after iv vancomycin - echo without vegetation mentioned - surveillance blood culture negative - monitor labs - surgery f/u and wound management - d/w Dr. Cuellar 2. HIV - Juluca per patient home medications, not available at [facility]. Stable on this current regimen. Patient to follow-up with HIV MD as outpatient. 3. Mild anemia. 4. Acute kidney injury. 5. No history of diabetes, hypertension. 6. No known allergies. 7. Social history is negative. 8. Family history is noncontributory. 9. MAR is noted. 10. Case discussed with RN. 11. Continue treatment per primary consultants. 12. Case discussed with Dr. Cuellar. 13. Surgery followup. Subjective Constitutional: Denies: fever HEENT: Denies: congestion Respiratory: Denies: shortness of breath Cardiovascular: Denies: chest pain Gastrointestinal/Abdominal: Denies: nausea, vomiting, diarrhea Genitourinary: Reports: other - no pat Neurologic: Denies: headache Psychiatric: Denies: depression Skin: Denies: rash Hematologic: Denies: bleeding Musculoskeletal: Denies: pain Allergies: Coded Allergies: No Known Allergies (Unverified , 09/16/19) Objective Vital Signs Last 24 Hour Vital Signs Date Time Temp Pulse Resp B/P (MAP) Pulse Ox O2 Delivery O2 Flow Rate FiO2 09/23/19 12:00 97 09/23/19 12:00 96.8 88 18 103/63 (76) 98 09/23/19 09:00 Room Air 09/23/19 08:00 98.6 80 19 107/65 (79) 100 09/23/19 08:00 88 09/23/19 04:00 81 09/23/19 04:00 81 09/23/19 00:00 78 09/23/19 00:00 98.4 78 20 148/84 (105) 96 09/22/19 21:00 Room Air 09/22/19 20:00 97.9 77 20 127/75 (92) 97 12/18/19 20:00 77 09/22/19 16:00 82 09/22/19 16:00 97.9 91 16 121/68 (85) 98 Height (Feet): 6 Height (Inches): 3.00 Weight (Pounds): 211 General Appearance: no acute distress HEENT: normocephalic, atraumatic, anicteric, mucous membranes moist Respiratory/Chest: lungs clear, normal breath sounds, no respiratory distress, no accessory muscle use Cardiovascular: normal rate, regular rhythm, no gallop/murmur, no JVD Abdomen: normal bowel sounds, soft, non tender, no organomegaly, non distended Genitourinary: other - no pat Extremities: no cyanosis Skin: no rash Neurologic/Psychiatric: sawyer helper II-XII grossly normal, alert, oriented x 3, responsive Lymphatic: no neck adenopathy Musculoskeletal: no effusion Objective CT abdomen and pelvis: IMPRESSION: * Focal skin thickening with subcutaneous inflammatory stranding involving the skin of the left lower back/left upper gluteal region concerning for cellulitis. No underlying subcutaneous fluid collection or abscess. No appreciable ulcer in this region however correlation with physical exam findings is recommended. * Equivocal thickening of the wall the bladder. Correlate with urinalysis to exclude cystitis. * Trace right pleural effusion and bibasilar airspace opacities which may related to compressive atelectasis. Developing infectious infiltrate can also be considered. * Splenomegaly with the spleen measuring 13 cm in length. * Mild to moderate colonic stool burden suggesting constipation. * No evidence of bowel obstruction or definite inflammatory stranding within the is anterior. Appendix is normal. Additional findings as above. 2-D echo - n vegetations mentioned in report chest x-ray - atx vs infiltrate (note CT with atx at lung bases), reports reviewed Microbiology Date/Time Source Procedure Growth Status 09/19/19 06:58 Blood Blood Culture - Preliminary NO GROWTH AFTER 48 HOURS Resulted 09/16/19 20:30 Wound Gram Stain - Final Complete 09/16/19 20:30 Wound Culture - Final Staphylococcus Aureus - Mrsa Complete 09/16/19 17:00 Nasal Nares MRSA Culture - Final NO METHICILLIN RESISTANT STAPH AUREUS... Complete 09/16/19 17:00 Rectum - Final NO CARBAPENEM-RESISTANT ENTEROBACTERI... Complete Labs Test 09/22/19 05:57 09/22/19 20:50 09/23/19 04:00 White Blood Count 8.1 K/UL (4.8-10.8) Red Blood Count 4.67 M/UL (4.70-6.10) Hemoglobin 13.7 G/DL (14.2-18.0) Hematocrit 39.2 % (42.0-52.0) Mean Corpuscular Volume 84 FL (80-99) Mean Corpuscular Hemoglobin 29.2 PG (27.0-31.0) Mean Corpuscular Hemoglobin Concent 34.9 G/DL (32.0-36.0) Red Cell Distribution Width 10.8 % (11.6-14.8) Platelet Count 400 K/UL (150-450) Mean Platelet Volume 5.0 FL (6.5-10.1) Neutrophils (%) (Auto) 65.3 % (45.0-75.0) Lymphocytes (%) (Auto) 24.5 % (20.0-45.0) Monocytes (%) (Auto) 4.9 % (1.0-10.0) Eosinophils (%) (Auto) 4.4 % (0.0-3.0) Basophils (%) (Auto) 1.0 % (0.0-2.0) Sodium Level 141 MMOL/L (136-145) Potassium Level 3.9 MMOL/L (3.5-5.1) Chloride Level 107 MMOL/L (98-107) Carbon Dioxide Level 27 MMOL/L (21-32) Anion Gap 8 mmol/L (5-15) Blood Urea Nitrogen 13 mg/dL (7-18) Creatinine 1.2 MG/DL (0.55-1.30) Estimat Glomerular Filtration Rate > 60 mL/min (>60) Glucose Level 99 MG/DL (74-106) Calcium Level 8.8 MG/DL (8.5-10.1) Vancomycin Level Trough 27.4 ug/mL (5.0-12.0) Random Vancomycin Level 16.6 ug/mL Laboratory Tests Test 09/22/19 20:50 09/23/19 04:00 Vancomycin Level Trough 27.4 ug/mL (5.0-12.0) H Random Vancomycin Level 16.6 ug/mL Current Medications Medications (Trade) Dose Ordered Sig/Gabino Route PRN Reason Start Time Stop Time Status Last Admin Dose Admin Acetaminophen (Tylenol) 650 mg Q4H PRN ORAL Mild Pain (Pain Scale 1-3) 09/17/19 13:58 10/16/19 13:57 09/17/19 21:59 Acetaminophen (Tylenol) 650 mg Q4H PRN ORAL fever 09/17/19 13:58 10/16/19 13:57 Chlorhexidine Gluconate (Leah-Hex 2%) 1 applic DAILY@2000 TOPIC 09/21/19 20:00 10/21/19 19:59 09/22/19 20:08 Dextrose (Dextrose 50%) 25 ml Q30M PRN IV Hypoglycemia 09/17/19 13:58 10/16/19 13:57 Dextrose (Dextrose 50%) 50 ml Q30M PRN IV Hypoglycemia 09/17/19 13:59 10/16/19 13:58 Diphenhydramine HCl (Benadryl) 25 mg Q6H PRN ORAL Itching/Pruritis 09/17/19 13:59 10/16/19 13:58 Gabapentin (Neurontin) 900 mg QHS ORAL 09/19/19 21:00 10/19/19 20:59 09/22/19 21:55 Heparin Sodium (Porcine) (Heparin 5000 units/ml) 5,000 units EVERY 12 HOURS SUBQ 09/17/19 21:00 10/16/19 20:59 09/23/19 09:15 Lorazepam (Ativan) 1 mg Q4H PRN ORAL For Anxiety 09/17/19 14:00 09/23/19 17:59 09/18/19 01:13 Magnesium Hydroxide (Mom) 30 ml HSPRN PRN ORAL Constipation 09/17/19 21:00 10/16/19 20:59 Memantine (Namenda) 10 mg QHS ORAL 09/19/19 21:00 10/19/19 20:59 09/22/19 21:55 Olanzapine (ZyPREXA Zydis) 30 mg QHS ORAL 09/19/19 21:00 10/19/19 20:59 09/22/19 21:55 Ondansetron HCl (Zofran) 4 mg Q6H PRN IVP Nausea & Vomiting 09/17/19 14:00 10/16/19 13:59 Patient Own Medication (Patient's Own Med) 1 ea DAILY ORAL 09/18/19 16:00 10/18/19 15:59 09/23/19 09:16 Patient Own Medication (Patient's Own Med) 1 ea QHS ORAL 09/20/19 21:00 10/20/19 20:59 09/22/19 21:55 Vancomycin HCl (Vanco rx to dose) 1 ea DAILY PRN MISC Per rx protocol 09/17/19 14:00 10/17/19 13:59 Vancomycin HCl 1 gm/Dextrose 275 ml @ 183.708 mls/hr Q8H IVPB 09/23/19 06:00 09/28/19 05:59 09/23/19 14:53 Venlafaxine HCl (Effexor-XR) 37.5 mg DAILY ORAL 09/23/19 16:00 10/23/19 15:59 Mor Rodriguez MD Sep 23, 2019 15:59
[2019-09-23 16:00] VITALS: BP 102/75
--- NOTE | 2019-09-23 16:05 | General Progress Note ---
Assessment/Plan Problem List: (1) Bacteremia due to methicillin resistant Staphylococcus aureus ICD Codes: R78.81 - Bacteremia SNOMED: 88965825357046175 (2) Severe sepsis ICD Codes: A41.9 - Sepsis, unspecified organism; R65.20 - Severe sepsis without septic shock SNOMED: 28517850 (3) Cellulitis of buttock, left ICD Codes: L03.317 - Cellulitis of buttock SNOMED: 07584243 (4) Acute respiratory failure ICD Codes: J96.00 - Acute respiratory failure, unspecified whether with hypoxia or hypercapnia SNOMED: 30145864 (5) RAZIA (acute kidney injury) ICD Codes: N17.9 - Acute kidney failure, unspecified SNOMED: 9222617, 77174973 (6) HIV (human immunodeficiency virus infection) ICD Codes: B20 - Human immunodeficiency virus [HIV] disease SNOMED: 36131536 Status: progressing, other - critical Assessment/Plan: #Severe sepsis secondary to skin abscess in the left buttock area and MRSA bacteremia Admitted to ICU--> step down s/p IVF cefepime and Vancomycin. Cefepime discontinued. needs to weeks of IV Vancomycin. given immunocompromised state and hx of substance abuse, cannot discharge home with picc. This was d/w patient's ID physician Dr. Payne, Dr. Silva ,Dr. Coronado, patient and his significant other Torsten on the phone. ID consult Dr. Silva Surgery consult Dr. Coronado for I&D wound care consult check cultures, blood and wound: Repeat blood cultures on , no growth to date Follow-up final cultures and sensitivity echo shows no vegetations # Insomnia # Anxiety #Depression restart home meds: gabapentin, zyprexa, gabapentin, belsomra resume Desvenlafaxine (Venlafaxine on formulary here) #Acute respiratory failure, elevated bnp. 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 counselled regarding usage case manager specialist consult for SNF placement I spent 40 minutes on this patient's case, greater than 50% spent on counselling and care coordination d/w Dr. Raheem Payne (primary) and Dr. Silva The time of my note may not reflect the time of my patient encounter. Subjective Date patient seen: Sep 23, 2019 ROS Limited/Unobtainable: No Constitutional: Reports: no symptoms, chills, diaphoresis, fever, malaise, weakness, other - depreesed, says forgot to tell usu he was on Desvenlafaxine at home HEENT: Denies: no symptoms, eye pain, blurred vision, tearing, double vision, ear pain, ear discharge, nose pain, nose congestion, throat pain, throat swelling, mouth pain, mouth swelling, other Cardiovascular: Denies: no symptoms, chest pain, edema, irregular heart rate, lightheadedness, palpitations, syncope, other Respiratory: Denies: no symptoms, cough, orthopnea, shortness of breath, SOB with excertion, SOB at rest, sputum, stridor, wheezing, other Gastrointestinal/Abdominal: Denies: no symptoms, abdomen distended, abdominal pain, black stools, tarry stools, blood in stool, constipated, diarrhea, difficulty swallowing, nausea, poor appetite, poor fluid intake, rectal bleeding , vomiting, other Genitourinary: Denies: no symptoms, burning, discharge, frequency, flank pain, hematuria, incontinence, pain, urgency, other Neurologic/Psychiatric: Denies: no symptoms, anxiety, depressed, emotional problems, headache, numbness, paresthesia, pre-existing deficit, seizure, tingling, tremors, weakness, other Endocrine: Denies: no symptoms, excessive sweating, flushing, intolerance to cold, intolerance to heat, increased hunger, increased thirst, increased urine, unexplained weight gain, unexplained weight loss, other Hematologic/Lymphatic: Denies: no symptoms, anemia, easy bleeding, easy bruising, other Allergies: Coded Allergies: No Known Allergies (Unverified , 09/16/19) Subjective following up for severe sepsis secondary to buttock abscess. MRSA bacteremia. No longer tachycardic. Breathing better. Afebrile. 2D echo reviewed, no vegetations or wall motion abnormality. per ID needs to weeks of IV vancomycin before transitioning to oral. feeling down and says thinks withdrawal from desvenlafaxine that he takes at home Objective Last 24 Hour Vital Signs Date Time Temp Pulse Resp B/P (MAP) Pulse Ox O2 Delivery O2 Flow Rate FiO2 09/23/19 12:00 97 09/23/19 12:00 96.8 88 18 103/63 (76) 98 09/23/19 09:00 Room Air 09/23/19 08:00 98.6 80 19 107/65 (79) 100 09/23/19 08:00 88 09/23/19 04:00 81 09/23/19 04:00 81 09/23/19 00:00 78 09/23/19 00:00 98.4 78 20 148/84 (105) 96 09/22/19 21:00 Room Air 09/22/19 20:00 97.9 77 20 127/75 (92) 97 09/22/19 20:00 77 Intake and Output 09/22/19 09/23/19 19:00 07:00 Intake Total 480 ml Balance 480 ml Intake Oral 480 ml # Voids 4 2 Laboratory Tests 09/22/19 20:50: Vancomycin Level Trough 27.4H 09/23/19 04:00: Random Vancomycin Level 16.6 Height (Feet): 6 Height (Inches): 3.00 Weight (Pounds): 211 Objective General appearance: alert, cooperative, no distress Head: Normocephalic, without obvious abnormality, atraumatic Eyes: PERRL, EOM's intact Throat: no thrush Neck: supple, no JVD Lungs: clear to auscultation bilaterally Heart: RRR, S1, S2 normal, no murmur, click, rub or gallop Abdomen: soft, non-tender. Bowel sounds normal. No masses, no organomegaly Extremities: extremities normal, atraumatic, no cyanosis or edema, +picc Pulses: 2+ and symmetric Neurologic: Grossly normal Skin: Presented on admission with large open furuncle L buttocks(L)3.2cm x (W) 4cm. Base of wound has 100% slough with surrounding erythematous and indurated borders(L)3.5cm x (W)6.8cm. Moderate amt of purulent exudate, now s/p I&D, covered with dressing. Enrike Cuellar M.D. Sep 23, 2019 16:05
[2019-09-23 20:00] VITALS: BP 108/65
[2019-09-23] MEDS: Dyna-Hex 2% Top Sol 2oz TOPIC SCH (21:15)
[2019-09-23] MEDS: Memantine 10mg tab ORAL SCH (21:15)
[2019-09-23] MEDS: ZyPREXA Zydis 10mg tab ORAL SCH (21:16)
[2019-09-23] MEDS: BELSOMRA 20 MG ORAL SCH (21:17)
[2019-09-24] VITALS: BP 110/66
[2019-09-24] MEDS: Vancomycin 1gm in D5W 275ml IVPB SCH ×3 (05:12→21:26)
[2019-09-24 06:06] LABS: BASOPHILS % (AUTO) 1.1 % (0.0-2.0); EOSINOPHILS % (AUTO) 3.3 % (0.0-3.0); HEMATOCRIT 38.8 % (42.0-52.0); HEMOGLOBIN 13.2 G/DL (14.2-18.0); LYMPHOCYTES % (AUTO) 26.2 % (20.0-45.0); MEAN CORPUSCULAR VOLUME 85 FL (80-99); MONOCYTES % (AUTO) 8.4 % (1.0-10.0); NEUTROPHILS % (AUTO) 61.1 % (45.0-75.0); PLATELET COUNT 381 K/UL (150-450); RED BLOOD COUNT 4.59 M/UL (4.70-6.10); RED CELL DISTRIBUTION WIDTH 11.2 % (11.6-14.8); WHITE BLOOD COUNT 6.3 K/UL (4.8-10.8)
[2019-09-24 06:37] LABS: ANION GAP 8 mmol/L (5-15); BLOOD UREA NITROGEN 15 mg/dL (7-18); CALCIUM 8.9 MG/DL (8.5-10.1); CARBON DIOXIDE 26 MMOL/L (21-32); CHLORIDE 105 MMOL/L (98-107); CREATININE 1.3 MG/DL (0.55-1.30); POTASSIUM 3.9 MMOL/L (3.5-5.1); SODIUM 139 MMOL/L (136-145)
[2019-09-24 08:00] VITALS: BP 117/63
[2019-09-24] MEDS: Venlafaxine XR 37.5mg cap ORAL SCH ×2 (08:23→08:56)
[2019-09-24] MEDS: JULUCA ORAL SCH (08:23)
[2019-09-24] MEDS: Heparin 5000 units/ml inj SUBQ SCH ×2 (08:24→21:00)
--- NOTE | 2019-09-24 10:23 | General Progress Note ---
Assessment/Plan Problem List: (1) Bacteremia due to methicillin resistant Staphylococcus aureus ICD Codes: R78.81 - Bacteremia SNOMED: 02236401662856927 (2) Severe sepsis ICD Codes: A41.9 - Sepsis, unspecified organism; R65.20 - Severe sepsis without septic shock SNOMED: 08211989 (3) Cellulitis of buttock, left ICD Codes: L03.317 - Cellulitis of buttock SNOMED: 53175549 (4) Acute respiratory failure ICD Codes: J96.00 - Acute respiratory failure, unspecified whether with hypoxia or hypercapnia SNOMED: 38574973 (5) RAZIA (acute kidney injury) ICD Codes: N17.9 - Acute kidney failure, unspecified SNOMED: 2118069, 38101222 (6) HIV (human immunodeficiency virus infection) ICD Codes: B20 - Human immunodeficiency virus [HIV] disease SNOMED: 46464834 (7) Depression ICD Codes: F32.9 - Major depressive disorder, single episode, unspecified SNOMED: 98535232 Status: progressing, other - critical Assessment/Plan: #Severe sepsis secondary to skin abscess in the left buttock area and MRSA bacteremia Admitted to ICU--> step down--> Telemetry s/p IVF cefepime and Vancomycin. Cefepime discontinued. needs to weeks of IV Vancomycin. given immunocompromised state and hx of substance abuse, cannot discharge home with picc. This was d/w patient's ID physician Dr. Payne, Dr. Silva ,Dr. Coronado, patient and his significant other Torsten on the phone. ID consult Dr. Silva Surgery consult Dr. Coronado for I&D wound care consult check cultures, blood and wound: Repeat blood cultures on , no growth to date Follow-up final cultures and sensitivity echo shows no vegetations Waiting for SNF placement # Insomnia # Anxiety #Depression restart home meds: gabapentin, zyprexa, gabapentin, belsomra resume Desvenlafaxine (Venlafaxine on formulary here) #Acute respiratory failure, elevated bnp. 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 counselled regarding usage case fitter consult for SNF placement I spent 40 minutes on this patient's case, greater than 50% spent on counselling and care coordination d/w Dr. Raheem Payne (primary) and Dr. Silva The time of my note may not reflect the time of my patient encounter. Subjective Date patient seen: Sep 24, 2019 ROS Limited/Unobtainable: No Constitutional: Denies: no symptoms, chills, diaphoresis, fever, malaise, weakness, other HEENT: Denies: no symptoms, eye pain, blurred vision, tearing, double vision, ear pain, ear discharge, nose pain, nose congestion, throat pain, throat swelling, mouth pain, mouth swelling, other Cardiovascular: Denies: no symptoms, chest pain, edema, irregular heart rate, lightheadedness, palpitations, syncope, other Respiratory: Denies: no symptoms, cough, orthopnea, shortness of breath, SOB with excertion, SOB at rest, sputum, stridor, wheezing, other Gastrointestinal/Abdominal: Denies: no symptoms, abdomen distended, abdominal pain, black stools, tarry stools, blood in stool, constipated, diarrhea, difficulty swallowing, nausea, poor appetite, poor fluid intake, rectal bleeding , vomiting, other Genitourinary: Denies: no symptoms, burning, discharge, frequency, flank pain, hematuria, incontinence, pain, urgency, other Neurologic/Psychiatric: Denies: no symptoms, anxiety, depressed, emotional problems, headache, numbness, paresthesia, pre-existing deficit, seizure, tingling, tremors, weakness, other Endocrine: Denies: no symptoms, excessive sweating, flushing, intolerance to cold, intolerance to heat, increased hunger, increased thirst, increased urine, unexplained weight gain, unexplained weight loss, other Hematologic/Lymphatic: Denies: no symptoms, anemia, easy bleeding, easy bruising, other Allergies: Coded Allergies: No Known Allergies (Unverified , 09/16/19) Subjective following up for severe sepsis secondary to buttock abscess. MRSA bacteremia. per ID needs 2 weeks of IV vancomycin before transitioning to oral. Waiting for transfer to SNF to finish IV antibiotics Objective Last 24 Hour Vital Signs Date Time Temp Pulse Resp B/P (MAP) Pulse Ox O2 Delivery O2 Flow Rate FiO2 09/24/19 08:00 98.8 83 20 117/63 (81) 97 09/24/19 08:00 93 09/24/19 04:00 71 09/24/19 00:00 98.5 80 16 110/66 (81) 98 09/24/19 00:00 87 09/23/19 21:00 Room Air 09/23/19 20:00 74 09/23/19 20:00 98.6 88 16 108/65 (79) 99 09/23/19 16:00 80 09/23/19 16:00 98.7 78 20 102/75 (84) 97 09/23/19 12:00 97 09/23/19 12:00 96.8 88 18 103/63 (76) 98 Intake and Output 09/23/19 09/24/19 19:00 07:00 Intake Total 260 ml Output Total 450 ml Balance -190 ml Intake Oral 260 ml Output Urine Total 450 ml # Voids 3 2 Laboratory Tests 09/24/19 05:00: White Blood Count 6.3, Red Blood Count 4.59L, Hemoglobin 13.2L, Hematocrit 38.8L , Mean Corpuscular Volume 85, Mean Corpuscular Hemoglobin 28.8, Mean Corpuscular Hemoglobin Concent 34.0, Red Cell Distribution Width 11.2L, Platelet Count 381, Mean Platelet Volume 4.6L, Neutrophils (%) (Auto) 61.1, Lymphocytes (%) (Auto) 26.2, Monocytes (%) (Auto) 8.4, Eosinophils (%) (Auto) 3.3H, Basophils (%) (Auto) 1.1, Sodium Level 139, Potassium Level 3.9, Chloride Level 105, Carbon Dioxide Level 26, Anion Gap 8, Blood Urea Nitrogen 15, Creatinine 1.3, Estimat Glomerular Filtration Rate > 60, Glucose Level 100, Calcium Level 8.9, Vancomycin Level Trough 15.6H Height (Feet): 6 Height (Inches): 3.00 Weight (Pounds): 209 Objective General appearance: alert, cooperative, no distress Head: Normocephalic, without obvious abnormality, atraumatic Eyes: PERRL, EOM's intact Throat: no thrush Neck: supple, no JVD Lungs: clear to auscultation bilaterally Heart: RRR, S1, S2 normal, no murmur, click, rub or gallop Abdomen: soft, non-tender. Bowel sounds normal. No masses, no organomegaly Extremities: extremities normal, atraumatic, no cyanosis or edema, +picc Pulses: 2+ and symmetric Neurologic: Grossly normal Skin: Presented on admission with large open furuncle L buttocks(L)3.2cm x (W) 4cm. Base of wound has 100% slough with surrounding erythematous and indurated borders(L)3.5cm x (W)6.8cm. Moderate amt of purulent exudate, now s/p I&D, covered with dressing. Enrike Cuellar M.D. Sep 24, 2019 10:23
[2019-09-24 12:00] VITALS: BP 109/59
[2019-09-24 16:00] VITALS: BP 103/59
[2019-09-24 20:00] VITALS: BP 112/63
--- NOTE | 2019-09-24 21:24 | Surgery Progress Note ---
Surgery Progress Note Subjective Symptoms: improved, tolerating diet, voiding well, passing flatus, pain decreased Objective Last 24 Hour Vital Signs Date Time Temp Pulse Resp B/P (MAP) Pulse Ox O2 Delivery O2 Flow Rate FiO2 09/24/19 20:00 97.7 76 20 112/63 (79) 97 09/24/19 16:00 67 09/24/19 16:00 97.9 74 18 103/59 (74) 100 09/24/19 12:00 80 09/24/19 12:00 98.1 84 18 109/59 (76) 98 09/24/19 09:00 Room Air 09/24/19 08:00 98.8 83 20 117/63 (81) 97 09/24/19 08:00 93 09/24/19 04:00 71 09/24/19 00:00 98.5 80 16 110/66 (81) 98 09/24/19 00:00 87 I&O Intake and Output 09/23/19 09/24/19 19:00 07:00 Intake Total 260 ml Output Total 450 ml Balance -190 ml Intake Oral 260 ml Output Urine Total 450 ml # Voids 3 2 Dressing: saturated Wound: clean Cardiovascular: RSR Respiratory: clear Abdomen: soft, flat, non-tender, present bowel sounds Extremities: no edema, no tenderness, no cyanosis Laboratory Tests Test 09/24/19 05:00 White Blood Count 6.3 K/UL (4.8-10.8) Red Blood Count 4.59 M/UL (4.70-6.10) L Hemoglobin 13.2 G/DL (14.2-18.0) L Hematocrit 38.8 % (42.0-52.0) L Mean Corpuscular Volume 85 FL (80-99) Mean Corpuscular Hemoglobin 28.8 PG (27.0-31.0) Mean Corpuscular Hemoglobin Concent 34.0 G/DL (32.0-36.0) Red Cell Distribution Width 11.2 % (11.6-14.8) L Platelet Count 381 K/UL (150-450) Mean Platelet Volume 4.6 FL (6.5-10.1) L Neutrophils (%) (Auto) 61.1 % (45.0-75.0) Lymphocytes (%) (Auto) 26.2 % (20.0-45.0) Monocytes (%) (Auto) 8.4 % (1.0-10.0) Eosinophils (%) (Auto) 3.3 % (0.0-3.0) H Basophils (%) (Auto) 1.1 % (0.0-2.0) Sodium Level 139 MMOL/L (136-145) Potassium Level 3.9 MMOL/L (3.5-5.1) Chloride Level 105 MMOL/L (98-107) Carbon Dioxide Level 26 MMOL/L (21-32) Anion Gap 8 mmol/L (5-15) Blood Urea Nitrogen 15 mg/dL (7-18) Creatinine 1.3 MG/DL (0.55-1.30) Estimat Glomerular Filtration Rate > 60 mL/min (>60) Glucose Level 100 MG/DL (74-106) Calcium Level 8.9 MG/DL (8.5-10.1) Vancomycin Level Trough 15.6 ug/mL (5.0-12.0) H Plan Problems: (1) Cellulitis of buttock, left Assessment & Plan: This is a 49-year-old male otherwise well presented with 1 week of left buttock pain progressively worsening. In ED identified to have leukocytosis, abnormal labs, large left buttock wound concerning for potential excising soft tissue infection it is open and draining with significant induration and tenderness and erythema. Pt presented on admission with large open furuncle L buttocks(L)3.2cm x (W)4cm. Base of wound has 100% slough with surrounding erythematous and indurated borders(L)3.5cm x (W)6.8cm. Moderate amt of purulent exudate noted.Mild elevation in skin temp periwound. Wound is by the bedside and cultures were taken of the drainage. There is no area of significant fluctuance or underlying abscess that could be identified. It is a large open furuncle on the left buttocks with a significant induration cellulitis with potential duration of week or even longer. Furthermore on evaluation patient has multiple small areas of less than 1 cm carbuncles noted scattered throughout his lower back. With patient's permission at the bedside some of the purulent dermal exudate was evacuated for the culture. The wound was cleansed. The opening was palpated and examined with minimal tunneling tracking and no deep pockets. We will need to monitor closely for improvement or progression Recommend IV antibiotics as per infectious disease Local wound care with washing wound daily, skin protectant, OPTi foam dressing Trend labs Okay for diet Okay for activity as tolerated Thank you for let me participate in patient's care will follow with recommendations improved no acute surgery needed but may need debridement of non viable tissue as cellulitis resolves bacteremia needs to stay for IV abx until clear by ID Some non-excisional debridement performed with gauze dressings at bedside. Wound bed with good granulation tissue. Continue with dressing changes upon discharge. Outpatient follow-up. CT with: * Focal skin thickening with subcutaneous inflammatory stranding involving the skin of the left lower back/left upper gluteal region concerning for cellulitis. No underlying subcutaneous fluid collection or abscess. No appreciable ulcer in this region however correlation with physical exam findings is recommended. * Equivocal thickening of the wall the bladder. Correlate with urinalysis to exclude cystitis. * Trace right pleural effusion and bibasilar airspace opacities which may related to compressive atelectasis. Developing infectious infiltrate can also be considered. * Splenomegaly with the spleen measuring 13 cm in length. * Mild to moderate colonic stool burden suggesting constipation. * No evidence of bowel obstruction or definite inflammatory stranding within the is anterior. Appendix is normal. Additional findings as above. (2) Cellulitis Stone Coronado Sep 24, 2019 21:24
[2019-09-24] MEDS: BELSOMRA 20 MG ORAL SCH (21:25)
[2019-09-24] MEDS: ZyPREXA Zydis 10mg tab ORAL SCH (21:25)
[2019-09-24] MEDS: Memantine 10mg tab ORAL SCH (21:25)
[2019-09-24] MEDS: Dyna-Hex 2% Top Sol 2oz TOPIC SCH (21:27)
[2019-09-25] VITALS: BP 108/53
[2019-09-25] MEDS: Vancomycin 1gm in D5W 275ml IVPB SCH ×2 (06:00→14:00)
[2019-09-25 08:00] VITALS: BP 112/66
[2019-09-25] MEDS: Heparin 5000 units/ml inj SUBQ SCH (09:00)
[2019-09-25] MEDS: JULUCA ORAL SCH (09:32)
[2019-09-25] MEDS: Venlafaxine XR 37.5mg cap ORAL SCH (09:32)
--- NOTE | 2019-09-25 11:41 | Discharge Instructions ---
Discharge Instructions Discharge Instructions Special Instructions PATIENT WILL BE ON IV VANCOMYCIN VIA PICC FOR ONE WEEK. PHARMACY TO DO DOSING. AFTER ONE WEEK WHICH ENDS ON 10/02. HE WILL SWITCH TO PO BACTRIM DS TWICE DAILY FOR ANOTHER 2 WEEKS (10/02/2019-10/16/2019) For Congestive Heart Failure Reminder Report to your physician any weight gain of 5 pounds or more in one week. Enrike Cuellar M.D. Sep 25, 2019 11:41
--- NOTE | 2019-09-25 11:42 | Discharge Summary ---
Discharge Summary Hospital Course Date of Admission Sep 16, 2019 at 13:57 Date of Discharge 09/25/2019 Admitting Diagnosis SEPSIS HPI Derik Kirby is a 49 year old male who was admitted on Sep 16, 2019 at 13 :57 for Sepsis Consultations Surgery: ID: Dr. Silva Hospital Course #Severe sepsis secondary to skin abscess in the left buttock area and MRSA bacteremia Admitted to ICU--> step down--> Telemetry s/p IVF cefepime and Vancomycin. Cefepime discontinued. needs to weeks of IV Vancomycin. given immunocompromised state and hx of substance abuse, cannot discharge home with picc. This was d/w patient's ID physician Dr. Payne, Dr. Silva ,Dr. Coronado, patient and his significant other Torsten on the phone. Patient will be discharged to rehab on a to finish total 2 weeks of IV vancomycin, then change to another 2 weeks of Bactrim DS BID. ID consult Dr. Silva Surgery consult Dr. Coronado for I&D wound care consult check cultures, blood and wound: Repeat blood cultures on , no growth to date Follow-up final cultures and sensitivity echo shows no vegetations # Insomnia # Anxiety #Depression restart home meds: gabapentin, zyprexa, gabapentin, belsomra resume Desvenlafaxine (Venlafaxine on formulary here) #Acute respiratory failure, elevated bnp. 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 counselled regarding usage child welfare caseworker consult for SNF placement--> [facility] [place] I spent 35 minutes on this patient's case, greater than 50% spent on counselling and care coordination d/w Dr. Raheem Payne (primary) and Dr. Alkaspooles The time of my note may not reflect the time of my patient encounter. Discharge Medications New Medications: Vancomycin In Dextrose,Iso-Osm (Vancomycin 750 Mg/150 Ml Bag) 750 Mg/150 Ml Froz.piggy 750 MG IV Q8HR for 7 Days, #7 BAG Acetaminophen* (Acetaminophen 325MG Tablet*) 325 Mg Tablet 650 MG ORAL Q4H PRN for 30 Days, #30 TAB Acetaminophen* (Acetaminophen 325MG Tablet*) 325 Mg Tablet 650 MG ORAL Q4H PRN for 30 Days, #30 TAB Gabapentin (Neurontin) 300 Mg Capsule 900 MG ORAL QHS for 30 Days, #30 CAP Memantine Hcl* (Namenda*) 10 Mg Tablet 10 MG ORAL QHS for 30 Days, #30 TAB Olanzapine (Zyprexa Zydis) 10 Mg Tab.rapdis 30 MG ORAL QHS for 30 Days, #30 TAB [[facility] pharmacy to dose] () 1 EA MISC 1 EA MISC DAILY PRN Venlafaxine HCl (Effexor Xr) 37.5 Mg Cap.er.24h 37.5 MG ORAL DAILY for 30 Days, #30 CAP Continued Medications: Dolutegravir/Rilpivirine (Juluca 50-25 Mg Tablet) 1 Each Tablet 1 EACH PO DAILY, TAB Discharge Condition Upon Discharge: improving Discharge Disposition Patient was discharged to rehab on Discharge Diagnoses: (1) Bacteremia due to methicillin resistant Staphylococcus aureus (2) Cellulitis of buttock, left (3) RAZIA (acute kidney injury) (4) HIV (human immunodeficiency virus infection) (5) Severe sepsis (6) Depression Enrike Cuellar M.D. Sep 25, 2019 11:42
[2019-09-25 12:00] VITALS: BP 114/67
--- NOTE | 2019-09-25 21:57 | Surgery Progress Note ---
Surgery Progress Note Subjective Symptoms: improved Objective Last 24 Hour Vital Signs Date Time Temp Pulse Resp B/P (MAP) Pulse Ox O2 Delivery O2 Flow Rate FiO2 09/25/19 12:00 97.5 83 16 114/67 (83) 98 09/25/19 09:00 Room Air 09/25/19 08:00 97.6 96 16 112/66 (81) 97 09/25/19 08:00 82 09/25/19 04:00 76 09/25/19 00:00 70 09/25/19 00:00 97.9 74 18 108/53 (71) 97 I&O Intake and Output 09/24/19 09/25/19 19:00 07:00 Intake Total 800 ml Output Total 400 ml Balance 800 ml -400 ml Intake Oral 800 ml Output Urine Total 400 ml # Voids 4 Dressing: dry Wound: clean Cardiovascular: RSR Respiratory: clear Abdomen: soft, flat, non-tender Extremities: no edema, no tenderness, no cyanosis Plan Problems: (1) Cellulitis of buttock, left Assessment & Plan: This is a 49-year-old male otherwise well presented with 1 week of left buttock pain progressively worsening. In ED identified to have leukocytosis, abnormal labs, large left buttock wound concerning for potential excising soft tissue infection it is open and draining with significant induration and tenderness and erythema. Pt presented on admission with large open furuncle L buttocks(L)3.2cm x (W)4cm. Base of wound has 100% slough with surrounding erythematous and indurated borders(L)3.5cm x (W)6.8cm. Moderate amt of purulent exudate noted.Mild elevation in skin temp periwound. Wound is by the bedside and cultures were taken of the drainage. There is no area of significant fluctuance or underlying abscess that could be identified. It is a large open furuncle on the left buttocks with a significant induration cellulitis with potential duration of week or even longer. Furthermore on evaluation patient has multiple small areas of less than 1 cm carbuncles noted scattered throughout his lower back. With patient's permission at the bedside some of the purulent dermal exudate was evacuated for the culture. The wound was cleansed. The opening was palpated and examined with minimal tunneling tracking and no deep pockets. We will need to monitor closely for improvement or progression Recommend IV antibiotics as per infectious disease Local wound care with washing wound daily, skin protectant, OPTi foam dressing Trend labs Okay for diet Okay for activity as tolerated Thank you for let me participate in patient's care will follow with recommendations improved no acute surgery needed but may need debridement of non viable tissue as cellulitis resolves bacteremia needs to stay for IV abx until clear by ID Some non-excisional debridement performed with gauze dressings at bedside. Wound bed with good granulation tissue. Continue with dressing changes upon discharge. Outpatient follow-up. CT with: * Focal skin thickening with subcutaneous inflammatory stranding involving the skin of the left lower back/left upper gluteal region concerning for cellulitis. No underlying subcutaneous fluid collection or abscess. No appreciable ulcer in this region however correlation with physical exam findings is recommended. * Equivocal thickening of the wall the bladder. Correlate with urinalysis to exclude cystitis. * Trace right pleural effusion and bibasilar airspace opacities which may related to compressive atelectasis. Developing infectious infiltrate can also be considered. * Splenomegaly with the spleen measuring 13 cm in length. * Mild to moderate colonic stool burden suggesting constipation. * No evidence of bowel obstruction or definite inflammatory stranding within the is anterior. Appendix is normal. Additional findings as above. seen and examined this AM plan for d/c today much improved wound minimal and healing well cont abx thank you (2) Cellulitis Stone Coronado Sep 25, 2019 21:57
== END 2019-09-25 15:30 | DRG 871 ==
LOC: EMR 12:59 → ICU 13:57 → EDBEDREQ 15:19 → EDBEDREQSVC 15:35 → EDBEDREQ 15:35 → 2W 09-17 00:30 → 2E 09-17 13:20
PROC: 0HD8XZZ Extraction of Buttock Skin, External Approach (ICD-10-PCS; principal; 2019-09-21)
DX: A41.02 Sepsis due to Methicillin resistant Staphylococcus aureus (principal); J96.00 Acute respiratory failure, unspecified whether with hypoxia or hypercapnia; N17.9 Acute kidney failure, unspecified; L03.317 Cellulitis of buttock; R65.20 Severe sepsis without septic shock; F15.10 Other stimulant abuse, uncomplicated; L02.32 Furuncle of buttock; D64.9 Anemia, unspecified; F41.9 Anxiety disorder, unspecified; F32.9 Major depressive disorder, single episode, unspecified
CPT/HCPCS: 36415; 36569; 71045; 74177; 76000; 76937; 80048; 80053; 80202; 80307; 81003; 82550; 82553; 83036; 83605; 83880; 84484; 85025; 85651; 86140; 86710; 87040; 87070; 87081; 87181; 87205; 93005; 93306; 96361; 96365; 96368; 99285; J7030